=== PATIENT | female | born 1955 | race African-American/Black ===

== ENCOUNTER → 2016-03-15 | Outpatient (CLI) | payer BC ==
[2014-06-04 14:41] VITALS: BP 163/83
--- NOTE | 2016-03-15 11:27 | RAD ---
EXAM: Left lower extremity bone length study. HISTORY: Hinson & Nephew protocol. COMPARISON: None. FINDINGS: Frontal views of the left lower extremity are obtained. There is mild medial compartment joint space narrowing and marginal spurring involving the knee. There is no fracture or dislocation. No suspicious osseous lesion is seen. IMPRESSION: Mild medial compartment osteoarthritis of the left knee.
--- NOTE | 2016-03-15 13:30 | RAD ---
MR of the left knee - Hinson and Nephew protocol History: Chronic left knee pain. Preoperative planning. Technique: Sequences are obtained in accordance with the Hinson and nephew protocol. Note this is not a diagnostic exam, but rather intended solely for the purpose of medical dermatologist construction. Moderate joint effusion. Small to moderate Urban cyst with internal septations. Medial meniscal blunting or tear. 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 Electronically signed by: Josue Amezcua MD (Mar 15, 2016 13:29:19)
== END | disposition home or self-care (01) ==
LOC: RAD 09:21
PROVIDERS: ATTEND Orthopaedic Surgery Sports Medicine
DX: M17.12 Unilateral primary osteoarthritis, left knee (principal)
CPT/HCPCS: 73721; 77073

== ENCOUNTER → 2016-04-02 | Outpatient (CLI) | payer BC ==
[2014-06-04 14:41] VITALS: BP 163/83
[~2016-04-02] MED LIST: BENA1TAB5 PO; CETI10CA PO; CYCL10TA2 PO; MELO15TA6 PO; METF10002 PO; METO100T5 PO; MINO50CA PO; NAPR220C4 PO; PRAV10TA2 PO; REGADENOSON 0.4 MG/5 ML DISP.SYRIN. IV ONE
--- NOTE | 2016-04-02 14:36 | RAD ---
APPROVED REPORT Test Type: Pharmacological Stress Nurse/Tech: Kelli Johnson R.N. Test Indications: preop clearance Cardiac History: htn Medications: see ehr Medical History: see ehr Resting ECG: sr Resting Heart Rate: 67 bpm Resting Blood Pressure: 152/76mmHg Pretest Chest Pain: No chest pain Nurse/Tech Notes lungs cta, heart tones regular, good radial pulse Consent: The procedure was explained to the patient in lay terms. Informed consent was witnessed. Derrick eout was entered into [employer]. History and Stress Test performed by Kelli Johnson R.N. Pharm. Details Pharmacologic stress testing was performed using 0.4mg per 5ml of regadenoson given intravenously ove r 7-10 seconds. Stress Symptoms No chest pain or symptoms. POST EXERCISE Reason for Termination: Infusion complete Target HR: No Max HR: 109 bpm Max Blood Pressure: 152/86mmHg Chest Pain: No. Arrhythmia: No. ST Change: No. INTERPRETATION Stress EKG Conclusion: Baseline EKG showed sinus rhythm. No ischemic changes at peak stress. No arr hythmias. Imaging Protocol IMAGE PROTOCOL: Rest Tc-99m/stress Tc-99m 1 day Rest: Stress: Viability: Radiopharm.Tc99m [id number] Sestamibi Dose13.5mCi 36mCi Duration 15min. 10min. Img Date 04/02/2016 04/02/2016 Inj-Img [id number]. 60min. Rest Admin Site:IV - Left AntecubitalAdministrator:MIKE Chapin Stress Admin Site: IV - Left AntecubitalAdministrator: JONATHON Barrow, ARRT (R)(N) STRESS DATA End Diast. Vol.63.0mlAv. Heart Rate75.0bpm End Syst. Vol.12.0mlCO Index BSA0.0L/min Myocardial Pwcn421.0gEject. Vteaozne30.0% Stress Rates Pk. Fill Rate3.35EDV/secLVtime Pk. Fill 224.44msec Pk. Empty Rate4.63ESV/secLVtime Pk. Iazgw337.42msec 03/09 Pk. Fill0.69EDV/sec Stress Scores Regional WT1.00Summed WT6.00 Regional WM0.00Summed WM1.00 Study quality was good. Left Ventricular size was Normal at Rest and Stress. Lung uptake was Normal. Left Ventricular ejection fraction is 81%. The rest and stress images show normal perfusion, normal contraction and thickening. LV Perf. Quant 17 Seg. SSS0.00 17 Seg. SRS0.00 17 Seg. SDS0.00 Stress Defect Extent (% LAD)0.00Rest Defect Extent (% LAD)0.00Rev. Defect Extent (% LAD)0.00 Stress Defect Extent (% LCX) 0.00Rest Defect Extent (% LCX)0.00Rev. Defect Extent (% LCX)0.00 Stress Defect Extent (% RCA)0.00Rest Defect Extent (% RCA)0.00Rev. Defect Extent (% RCA)0.00 Stress Defect Extent (% TIM)0.00Rest Defect Extent (% TIM)0.00Rev. Defect Extent (% TIM)0.00 Conclusion 1. Regadenoson cardioisotope stress test did not show any evidence of ischemia or infarct. 2. Normal left ventricular systolic function with ejection fraction calculated at 81%. 3. Low risk for cardiac events.
== END | disposition home or self-care (01) ==
LOC: NM 09:12
PROVIDERS: ATTEND Internal Medicine Cardiovascular Disease
DX: Z01.818 Encounter for other preprocedural examination (principal); I10 Essential (primary) hypertension
CPT/HCPCS: 78452; 93017; 96374; A9500; J2785

== ENCOUNTER 2018-02-07 11:10 | Emergency (ER) | payer BC ==
[~2018-02-07] VITALS: Ht 167.6 cm; Wt 77.1 kg
[~2018-02-07 11:10] MED LIST changes: -METF10002 PO; +METF10007 PO; -MINO50CA PO; +MINO50CA3 PO; +OXYC1TAB19 PO; -REGADENOSON 0.4 MG/5 ML DISP.SYRIN. IV ONE; +WARF-78 PO
[2018-02-07] MEDS ORDERED: IV NORMAL SALINE 1000ML BAG 1,000 ML IV ONE (12:00)
--- NOTE | 2018-02-07 12:09 | PHYS DOC ---
Past Medical History Past Medical History: Diabetes-Type II, Hypertension Additional Past Medical Histor: chronic back pain Past Surgical History: Appendectomy, Hysterectomy Additional Past Surgical Histo: multiple breast cysts removed; axillary glands ; L knee; Alcohol Use: Rarely Drug Use: Marijuana Social History Narrative: "1/2 joint at HS" Adult General Chief Complaint Chief Complaint: DIZZY/LIGHT HEADED HPI HPI Patient is a pleasant 62-year-old female who presents to the emergency department for evaluation. She states she was at work, when she began to suddenly experienced some lightheadedness, and felt as if she was given faint. She tried walking to sit down, but felt lightheaded, and a coworker helped her into the chair. She did not actually fall or injure herself. She is not having any pain, including a headache, and has not had any vision changes. She denies any chest pain shortness of breath, abdominal pain, nausea vomiting or diarrhea , or any focal weakness. She has not had any hearing changes or tinnitus, or sensation of rotation. There are no alleviating or exacerbating factors to the patient's symptoms. Review of Systems Review of Systems Constitutional: Denies fever or chills [] Eyes: Denies change in visual acuity, redness, or eye pain [] HENT: Denies nasal congestion or sore throat [] Respiratory: Denies cough or shortness of breath [] Cardiovascular: The patient denies any shortness of breath, chest pain, palpitations, or orthopnea[] GI: Denies abdominal pain, nausea, vomiting, bloody stools or diarrhea [] : Denies dysuria or hematuria [] Musculoskeletal: Denies back pain or joint pain [] Integument: Denies rash or skin lesions [] Neurologic: Denies headache, focal weakness or sensory changes [] Endocrine: Denies polyuria or polydipsia [] All other systems were reviewed and found to be within normal limits, except as documented in this note. Current Medications Current Medications Current Medications Medications (Trade) Dose Ordered Sig/Kat Start Time Stop Time Status Last Admin Dose Admin Sodium Chloride 1,000 ml @ 1,000 mls/hr 1X ONCE 02/07/18 12:00 02/07/18 12:59 DC 02/07/18 12:43 1,000 MLS/HR Allergies Allergies Allergies Coded Allergies Type Severity Reaction Last Updated Verified Sulfa (Sulfonamide Antibiotics) Allergy Severe swelling 04/20/16 Yes amlodipine Allergy Severe Anaphylaxis 04/19/16 Yes adhesive tape Adverse Reaction Intermediate Rash 04/19/16 Yes Physical Exam Physical Exam PHYSICAL EXAM: CONSTITUTIONAL: Well developed, well nourished HEAD: normocephalic, atraumatic EENT: PERRL, EOMI. Conjunctivae normal color, sclerae non-icteric; moist mucous membranes. NECK: Supple, non-tender; no meningismus. LUNGS: Lungs CTA, breathing even and unlabored. Normal air movement. HEART: Regular rate and rhythm, no murmur CHEST: No deformity; non-tender ABDOMEN: The abdomen is soft, and non-tender, no masses or bruits. EXTREM: Normal ROM; no deformity, no calf tenderness. Normal pulses palpable in all extremities. There is no pedal edema. SKIN: No rash; no diaphoresis NEURO: Alert; normal speech and cognition; CN's grossly intact; strength grossly intact without focal deficit. Nbduib-dbad-rjdddx and heel squires testing are normal. Sensation is normal. Visual olivo are intact by confrontation. BACK: No CVA TTP. Current Patient Data Vital Signs Vital Signs Date Time Temp Pulse Resp B/P (MAP) Pulse Ox O2 Delivery O2 Flow Rate FiO2 02/07/18 11:20 98.0 70 16 189/85 (119) 99 Room Air 98.0 Lab Values Laboratory Tests Test 02/07/18 11:26 02/07/18 12:35 02/07/18 13:10 Glucose (Fingerstick) 71 mg/dL (70-99) White Blood Count 7.2 x10^3/uL (4.0-11.0) Red Blood Count 4.11 x10^6/uL (3.50-5.40) Hemoglobin 12.9 g/dL (12.0-15.5) Hematocrit 38.1 % (36.0-47.0) Mean Corpuscular Volume 93 fL (79-100) Mean Corpuscular Hemoglobin 31 pg (25-35) Mean Corpuscular Hemoglobin Concent 34 g/dL (31-37) Red Cell Distribution Width 15.2 % (11.5-14.5) H Platelet Count 191 x10^3/uL (140-400) Neutrophils (%) (Auto) 63 % (31-73) Lymphocytes (%) (Auto) 27 % (24-48) Monocytes (%) (Auto) 6 % (0-9) Eosinophils (%) (Auto) 3 % (0-3) Basophils (%) (Auto) 1 % (0-3) Neutrophils # (Auto) 4.6 x10^3uL (1.8-7.7) Lymphocytes # (Auto) 1.9 x10^3/uL (1.0-4.8) Monocytes # (Auto) 0.5 x10^3/uL (0.0-1.1) Eosinophils # (Auto) 0.2 x10^3/uL (0.0-0.7) Basophils # (Auto) 0.1 x10^3/uL (0.0-0.2) Sodium Level 141 mmol/L (136-145) Potassium Level 3.9 mmol/L (3.5-5.1) Chloride Level 105 mmol/L (98-107) Carbon Dioxide Level 31 mmol/L (21-32) Anion Gap 5 (6-14) L Blood Urea Nitrogen 16 mg/dL (7-20) Creatinine 0.9 mg/dL (0.6-1.0) Estimated GFR (Cockcroft-Gault) 76.8 BUN/Creatinine Ratio 18 (6-20) Glucose Level 110 mg/dL (70-99) H Calcium Level 9.7 mg/dL (8.5-10.1) Magnesium Level 2.0 mg/dL (1.8-2.4) Total Bilirubin 0.3 mg/dL (0.2-1.0) Aspartate Amino Transferase (AST) 18 U/L (15-37) Alanine Aminotransferase (ALT) 28 U/L (14-59) Alkaline Phosphatase 92 U/L (46-116) Creatine Kinase 200 U/L (26-192) H Creatine Kinase MB (Mass) 1.6 ng/mL (0.0-3.6) Creatine Kinase MB Relative Index 0.8 % (0-4) Troponin I Quantitative < 0.017 ng/mL (0.000-0.055) DH-Uvi-W-Type Natriuretic Peptide 65 pg/mL (0-124) Total Protein 7.5 g/dL (6.4-8.2) Albumin 3.5 g/dL (3.4-5.0) Albumin/Globulin Ratio 0.9 (1.0-1.7) L Thyroid Stimulating Hormone (TSH) 1.569 uIU/mL (0.358-3.74) Free Thyroxine 0.85 ng/dL (0.76-1.46) Urine Collection Type Unknown Urine Color Yellow Urine Clarity Clear Urine pH 7.5 Urine Specific Greer 1.015 Urine Protein Negative mg/dL (NEG-TRACE) Urine Glucose (UA) Negative mg/dL (NEG) Urine Ketones (Stick) Negative mg/dL (NEG) Urine Blood Negative (NEG) Urine Nitrite Negative (NEG) Urine Bilirubin Negative (NEG) Urine Urobilinogen Dipstick 0.2 mg/dL (0.2 mg/dL) Urine Leukocyte Esterase Negative (NEG) Urine RBC Occ /HPF (0-2) Urine WBC 0 /HPF (0-4) Urine Squamous Epithelial Cells Few /LPF Urine Bacteria 0 /HPF (0-FEW) Laboratory Tests 02/07/18 12:35 Laboratory Tests 02/07/18 12:35 EKG EKG [Normal sinus rhythm at a rate of 71 beats for minute, borderline left axis deviation, normal intervals. There are no acute ischemic ST/T changes.] Radiology/Procedures Radiology/Procedures [] Course & Med Decision Making Course & Med Decision Making Pertinent Labs and Imaging studies reviewed. (See chart for details) [2:10 PM: The patient's condition remains stable, she is back to baseline and is currently asymptomatic. I discussed importance of close blood pressure monitoring at home. I will double her TREMAINE inhibitor to 20 mg (she currently takes been as a pill 10 mg), and we'll add HCTZ. I discussed keeping a blood pressure log, the need for close PCP follow-up and return precautions.] Dragon Disclaimer Dragon Disclaimer This electronic medical record was generated, in whole or in part, using a voice recognition dictation system. Departure Departure Impression: Primary Impression: Dizziness Additional Impression: Hypertension Disposition: 01 HOME, SELF-CARE Condition: STABLE Referrals: UNKNOWN PCP NAME (PCP) Patient Instructions: Dizziness, Near-Syncope Scripts Benazepril/Hydrochlorothiazide (BENAZEPRIL-HCTZ 20-12.5 MG TAB) 1 Each Tablet 1 TAB PO DAILY, #30 TAB 1 Refill Prov: ABBEY KRISHNAMURTHY MD 02/07/18 Problem Qualifiers ABBEY KRISHNAMURTHY MD Feb 07, 2018 12:09
--- NOTE | 2018-02-07 12:11 | EKG ---
[facility] [address] [place] [address] Test Date: 2018-02-07 Test Time: 11:31:20 Pat Name: MALINDA RICHARDSON Department: Room: Gender: F Gas Leak Tester: RACQUEL : 1955 Requested By: ABBEY KRISHNAMURTHY Order Number: [id number] Reading MD: Measurements Intervals Enloe Rate: 70 P: 32 TX: 176 QRS: 30 QRSD: 82 T: 90 QT: 374 QTc: 406 Interpretive Statements SINUS RHYTHM LEFT ATRIAL ABNORMALITY T ABNORMALITY IN HIGH LATERAL LEADS NON SPECIFIC ST-T ABNORMALITY (ELEVATION) ABNORMAL ECG No previous ECG available for comparison
[2018-02-07 12:45] LABS: BASO # 0.1 x10^3/uL (0.0-0.2); BASO % 1 % (0-3); EOS # 0.2 x10^3/uL (0.0-0.7); EOS % 3 % (0-3); HEMATOCRIT 38.1 % (36.0-47.0); HEMOGLOBIN 12.9 g/dL (12.0-15.5); LYMPH # 1.9 x10^3/uL (1.0-4.8); LYMPH % 27 % (24-48); MEAN CORPUSCULAR HEMOGLOBIN 31 pg (25-35); MEAN CORPUSCULAR HGB CONC 34 g/dL (31-37); MEAN CORPUSCULAR VOLUME 93 fL (79-100); MONO # 0.5 x10^3/uL (0.0-1.1); MONO % 6 % (0-9); NEUT # 4.6 x10^3uL (1.8-7.7); NEUT % 63 % (31-73); PLATELET COUNT 191 x10^3/uL (140-400); RED BLOOD COUNT 4.11 x10^6/uL (3.50-5.40); RED CELL DISTRIBUTION WIDTH 15.2 % (11.5-14.5); WHITE BLOOD COUNT 7.2 x10^3/uL (4.0-11.0)
[2018-02-07 12:55] LABS: CALCIUM 9.7 mg/dL (8.5-10.1); CREATININE 0.9 mg/dL (0.6-1.0); GFR 76.8; POTASSIUM 3.9 mmol/L (3.5-5.1)
[2018-02-07 13:02] LABS: ALBUMIN 3.5 g/dL (3.4-5.0); ALBUMIN/GLOBULIN RATIO 0.9 (1.0-1.7); TOTAL BILIRUBIN 0.3 mg/dL (0.2-1.0); TOTAL PROTEIN 7.5 g/dL (6.4-8.2)
[2018-02-07 13:09] LABS: FREE T4 0.85 ng/dL (0.76-1.46); THYROID STIM HORMONE (TSH) 1.569 uIU/mL (0.358-3.74)
[2018-02-07 13:23] LABS: BILIRUBIN,URINE NEGATIVE (NEG); CLARITY,URINE CLEAR; COLOR,URINE YELLOW; NITRITE,URINE NEGATIVE (NEG); PH,URINE 7.5; PROTEIN,URINE NEGATIVE (NEG-TRACE); UROBILINOGEN,URINE 0.2 mg/dL (0.2 mg/dL)
[2018-02-07 13:25] LABS: SQUAMOUS EPITHELIAL CELL,UR FEW /LPF
[2018-02-07 13:26] LABS: BACTERIA,URINE 0 /HPF (0-FEW); RBC,URINE OCC /HPF (0-2); WBC,URINE 0 /HPF (0-4)
[2018-02-07 13:57] VITALS: BP 183/74
[2018-02-07] MEDS ORDERED: BENA1TAB6 PO (14:18)
== END 2018-02-07 14:30 | disposition home or self-care (01) ==
LOC: ER 11:10
DX: R42 Dizziness and giddiness (principal); I10 Essential (primary) hypertension; E11.9 Type 2 diabetes mellitus without complications; G89.29 Other chronic pain; Z90.89 Acquired absence of other organs; Z90.710 Acquired absence of both cervix and uterus; Z88.2 Allergy status to sulfonamides; Z88.8 Allergy status to other drugs, medicaments and biological substances
CPT/HCPCS: 36415; 80053; 81001; 82553; 82962; 83735; 83880; 84439; 84443; 84484; 85025; 93005; 96360; 99284; J7030

== ENCOUNTER → 2018-02-16 | Outpatient (CLI) | payer BC ==
[2018-02-07 13:57] VITALS: BP 183/74
[~2018-02-16] MED LIST changes: +BENA1TAB6 PO
--- NOTE | 2018-02-17 09:05 | RAD ---
DATE: 02/16/2014 EXAM: MAMMO DEVON SCREENING BILATERAL HISTORY: Routine screening. COMPARISON: None available This study was interpreted with the benefit of Computerized Aided Detection (CAD). FINDINGS: Breast Density: HETERO The breast parenchyma Is heterogeneously dense, which could reduce sensitivity of mammography. Breast parenchyma level C. The skin and nipples are within normal limits. There is a 1.5 cm oval-shaped mass with well-circumscribed margins at 4:00 position in the left breast approximately 8 cm from the nipple. No suspicious calcifications or spiculated masses. IMPRESSION: Left outer lower quadrant mass likely simple cyst. However since no comparison exam exists further evaluation with ultrasound is recommended. BI-RADS CATEGORY: 0 INCOMPLETE: NEED ADDITIONAL IMAGING EVAULATION AND/OR PRIOR MAMMOGRAMS FOR COMPARISON RECOMMENDED FOLLOW-UP: ADD ADDITIONAL IMAGING. Ultrasound of the lateral left breast at 3:00 position. PQRS compliance statement: Patient information was entered into a reminder system with a target due date for the next mammogram. Mammography is a sensitive method for finding small breast cancers, but it does not detect them all and is not a substitute for careful clinical examination. A negative mammogram does not negate a clinically suspicious finding and should not result in delay in biopsying a clinically suspicious abnormality. "Our facility is accredited by the [employer] Mammography Program."
== END | disposition home or self-care (01) ==
LOC: MAMMO 15:47
PROVIDERS: ATTEND Family Medicine
DX: Z12.31 Encounter for screening mammogram for malignant neoplasm of breast (principal)
CPT/HCPCS: 77063; 77067

== ENCOUNTER → 2018-02-23 | Outpatient (CLI) | payer BC ==
[2018-02-07 13:57] VITALS: BP 183/74
--- NOTE | 2018-02-23 13:28 | RAD ---
DATE: 02/23/2018 2:30 PM EXAM: BREAST LEFT HISTORY: further evaluation of a finding noted on her most recent screening mammographic examination. On that examination a mass was reported within the left breast COMPARISON: Prior mammogram 02/16/2018 TECHNIQUE: Grayscale and color Doppler sonographic evaluation was performed in the left breast in the region of mammographic abnormality. ULTRASOUND FINDINGS: Targeted ultrasound of the mammographic area of concern was performed. 4:00 position, 8 cm from the nipple: Parenchymal tissue of normal echotexture is present. IMPRESSION: No sonographic correlate is seen to the mammographic finding seen on prior screening examination. BI-RADS CATEGORY: 3 PROBABLY BENIGN FINDING(S)-SHORT INTERVAL FOLLOW-UP SUGGESTED RECOMMENDED FOLLOW-UP: 6M 6 MONTH FOLLOW-UP . 6 month follow-up mammographic imaging is recommended with possible ultrasound. PQRS compliance statement: Patient information was entered into a reminder system with a target due date 08/24/2017 for the next breast imaging. Mammography is a sensitive method for finding small breast cancers, but it does not detect them all and is not a substitute for careful clinical examination. A negative mammogram does not negate a clinically suspicious finding and should not result in delay in biopsying a clinically suspicious abnormality. "Our facility is accredited by the [employer] Mammography Program."
== END | disposition home or self-care (01) ==
LOC: US 12:31
PROVIDERS: ATTEND Family Medicine
DX: R92.8 Other abnormal and inconclusive findings on diagnostic imaging of breast (principal)
CPT/HCPCS: 76641

== ENCOUNTER → 2018-09-04 | Outpatient (CLI) | payer BC ==
--- NOTE | 2018-09-05 09:58 | RAD ---
DATE: 09/04/2018 EXAM: DIGITAL DIAGNOSTIC LT HISTORY: Abnormal mammogram. 6 month follow-up. COMPARISON: 02/16/2018 mammogram This study was interpreted with the benefit of Computerized Aided Detection (CAD). Breast Density: SCATTERED The breast parenchyma shows scattered fibroglandular densities. Breast parenchyma level B. FINDINGS: MLO and CC images of the left breast were obtained. Asymmetry of the outer left breast is somewhat less evident compared to prior exam. No mass, suspicious calcification clusters, or distortion identified. IMPRESSION: Benign findings BI-RADS CATEGORY: 1 NEGATIVE RECOMMENDED FOLLOW-UP: 6M 6 MONTH FOLLOW-UP PQRS compliance statement: Patient information was entered into a reminder system with a target due date in one year for the next mammogram. Mammography is a sensitive method for finding small breast cancers, but it does not detect them all and is not a substitute for careful clinical examination. A negative mammogram does not negate a clinically suspicious finding and should not result in delay in biopsying a clinically suspicious abnormality. "Our facility is accredited by the [employer] Mammography Program."
== END | disposition home or self-care (01) ==
LOC: MAMMO 16:07
PROVIDERS: ATTEND Family Medicine
DX: Z09 Encounter for follow-up examination after completed treatment for conditions other than malignant neoplasm (principal); N64.89 Other specified disorders of breast
CPT/HCPCS: 77065

== ENCOUNTER → 2020-09-02 | Outpatient (CLI) | payer BC ==
[~2020-09-02] MED LIST changes: -WARF-78 PO; +WARF5TAB2 PO
--- NOTE | 2020-09-02 15:14 | KCIC ---
EXAM: LUMBAR SPINE MINIMUM 4 VIEWS. HISTORY: Low back and right hip pain. COMPARISON: None. FINDINGS: There is grade 1 anterolisthesis at L4-5. There is a mild lumbar dextrocurvature. Vertebral body heights are maintained, and no fractures are identified. Degenerative disc disease is mild to m oderate from L3 through S1. Facet osteoarthritis is moderate to severe at L4-S1. There are atheroscle rotic calcifications of the aorta. IMPRESSION: 1. Grade 1 anterolisthesis at L4-5 from facet osteoarthritis. 2. Degenerative disc disease is mild to moderate from L4 through S1. Electronically signed by: Jimbo Jiménez MD (09/02/2020 3:11 PM) [id number]
== END ==
LOC: KCIC 10:21
PROVIDERS: ATTEND Family Medicine
DX: M51.37 Other intervertebral disc degeneration, lumbosacral region (principal); M47.817 Spondylosis without myelopathy or radiculopathy, lumbosacral region
CPT/HCPCS: 72110

== ENCOUNTER 2021-06-20 12:04 | Inpatient (IN) | payer MEDICARE, BC ==
[~2021-06-20] VITALS: Ht 162.6 cm; Wt 75.1 kg
[~2021-06-20 12:04] MED LIST changes: +BENA1TAB48 PO; -BENA1TAB5 PO; +CYCL10TA19 PO; -CYCL10TA2 PO
[2021-06-20] MEDS ORDERED: ASPIRIN CHEWABLE 81 MG TABLET. PO ONE (12:30)
[2021-06-20] MEDS ORDERED: IV NORMAL SALINE 1000ML BAG 1,000 ML IV SCH (12:30)
[2021-06-20 12:49] LABS: BASO # 0.1 x10^3/uL (0.0-0.2); BASO % 1 % (0-3); EOS # 0.2 x10^3/uL (0.0-0.7); EOS % 2 % (0-3); HEMATOCRIT 41.8 % (36.0-47.0); HEMOGLOBIN 13.9 g/dL (12.0-15.5); LYMPH # 3.6 x10^3/uL (1.0-4.8); LYMPH % 32 % (24-48); MEAN CORPUSCULAR HEMOGLOBIN 31 pg (25-35); MEAN CORPUSCULAR HGB CONC 33 g/dL (31-37); MEAN CORPUSCULAR VOLUME 93 fL (79-100); MONO # 0.7 x10^3/uL (0.0-1.1); MONO % 6 % (0-9); NEUT # 6.5 x10^3/uL (1.8-7.7); NEUT % 59 % (31-73); PLATELET COUNT 191 x10^3/uL (140-400); RED BLOOD COUNT 4.52 x10^6/uL (3.50-5.40); RED CELL DISTRIBUTION WIDTH 15.6 % (11.5-14.5)
[2021-06-20 13:00] LABS: PROTHROMBIN TIME PATIENT 12.8 SEC (11.7-14.0)
[2021-06-20 13:02] LABS: CALCIUM 10.6 mg/dL (8.5-10.1); CREATININE 1.3 mg/dL (0.6-1.0); GFR 49.7; POTASSIUM 3.4 mmol/L (3.5-5.1)
[2021-06-20 13:07] LABS: ALBUMIN 4.1 g/dL (3.4-5.0); MAGNESIUM 1.9 mg/dL (1.8-2.4); TOTAL BILIRUBIN 0.7 mg/dL (0.2-1.0); TOTAL PROTEIN 8.2 g/dL (6.4-8.2)
--- NOTE | 2021-06-20 13:10 | RAD ---
EXAMINATION: Chest radiograph. VIEWS: Single AP view of the chest COMPARISON: None INDICATION:65 years, Female, tachycardia. FINDINGS: Normal cardiomediastinal silhouette. No focal consolidation. No pleural effusion or pneumothorax. No acute osseous process. IMPRESSION: No acute cardiopulmonary process. Electronically signed by: Nakul Castellanos DO (06/20/2021 1:08 PM) [id number]
[2021-06-20] MEDS ORDERED: CONTRAST GIVEN. MC PRN (13:15)
[2021-06-20] MEDS ORDERED: IOHEXOL 350 MG/ML 100 ML VIAL. IV ONE (13:15)
[2021-06-20 13:38] LABS: AMPHETAMINE/METHAMPHETAMINE NEG (NEG); BARBITURATES NEG (NEG); BENZODIAZEPINES NEG (NEG); CANNABINOIDS POS (NEG); COCAINE NEG (NEG); METHADONE NEG (NEG); OPIATES NEG (NEG); PHENCYCLIDINE NEG (NEG)
[2021-06-20 13:41] LABS: BACTERIA,URINE FEW /HPF (0-FEW); RBC,URINE 0 /HPF (0-2); WBC,URINE OCC /HPF (0-4)
[2021-06-20] MEDS ORDERED: ACETAMINOPHEN 500 MG TABLET PO ONE (13:45)
--- NOTE | 2021-06-20 13:46 | PHYS DOC ---
Past Medical History Past Medical History: Diabetes-Type II, Hypertension Additional Past Medical Histor: chronic back pain Past Surgical History: Appendectomy, Hysterectomy, Other Additional Past Surgical Histo: multiple breast cysts removed; axillary glands; L knee; Smoking Status: Current Every Day Smoker Alcohol Use: Rarely Drug Use: Marijuana General Adult EDM: Chief Complaint: Palpitations HPI: HPI: Patient is a 65 year old female who presents with here with palpitations that made her dizzy and short of breath. She denies any pain. She states she is never felt this before. Patient states that hedges started this morning. Patient with history of high cholesterol, hypertension, diabetes, smoking, appendectomy, hysterectomy. Denies abdominal pain, nausea, vomiting, diarrhea, focal weakness, fevers, cough, back pain, urinary symptoms, vision change, syncope. Review of Systems: Review of Systems: Constitutional: Denies fever or chills. [] Eyes: Denies change in visual acuity. [] HENT: Denies nasal congestion or sore throat. [] Respiratory: Denies cough or +shortness of breath. [] Cardiovascular: Denies chest pain or edema. +Palpitations[] GI: Denies abdominal pain, nausea, vomiting, bloody stools or diarrhea. [] : Denies dysuria. [] Musculoskeletal: Denies back pain or joint pain. [] Integument: Denies rash. [] Neurologic: Denies headache, focal weakness or sensory changes. +dizziness[] Endocrine: Denies polyuria or polydipsia. [] Lymphatic: Denies swollen glands. [] Psychiatric: Denies depression or anxiety. [] Heart Score: C/O Chest Pain: No HEART Score for Chest Pain: HEART Score for Chest Pain Response (Comments) Value History Slighlty/Non-Suspicious 0 ECG Nonspecific Repolarizatio 1 Age >45 - < 65 1 Risk Factors >3 Risk Factors or Hx CAD 2 Troponin >1-<3x Normal Limit 1 Total 5 Risk Factors: Risk Factors: DM, Current or recent (<one month) smoker, HTN, HLP, family history of CAD, obesity. Risk Scores: Score 0 - 3: 2.5% MACE over next 6 weeks - Discharge Home Score 4 - 6: 20.3% MACE over next 6 weeks - Admit for Clinical Observation Score 7 - 10: 72.7% MACE over next 6 weeks - Early Invasive Strategies Current Medications: Current Medications Medications (Trade) Dose Ordered Sig/Kat Start Time Stop Time Status Last Admin Dose Admin Aspirin (Aspirin Chewable) 324 mg 1X ONCE 06/20/21 12:30 06/20/21 12:31 DC 06/20/21 12:45 324 MG Info (CONTRAST GIVEN -- Rx MONITORING) 1 each PRN DAILY PRN 06/20/21 13:15 06/22/21 13:14 Iohexol (Omnipaque 350 Mg/ml) 100 ml 1X ONCE 06/20/21 13:15 06/20/21 13:16 DC Sodium Chloride 1,000 ml @ 1,000 mls/hr Q1H 06/20/21 12:30 06/20/21 13:29 DC 06/20/21 12:45 1,000 MLS/HR Allergies: Allergies: Allergies Coded Allergies Type Severity Reaction Last Updated Verified Sulfa (Sulfonamide Antibiotics) Allergy Severe swelling 04/20/16 Yes amlodipine Allergy Severe Anaphylaxis 04/19/16 Yes adhesive tape Adverse Reaction Intermediate Rash 04/19/16 Yes Physical Exam: PE: Constitutional: Well developed, well nourished, no acute distress, non-toxic appearance. [] HENT: Normocephalic, atraumatic, bilateral external ears normal, oropharynx moist, no oral exudates, nose normal. [] Eyes: PERRLA, EOMI, conjunctiva normal, no discharge. [] Neck: Normal range of motion, no tenderness, supple, no stridor. [] Cardiovascular:Heart rate regular tachycardia rhythm, no murmur [] Lungs & Thorax: Bilateral breath sounds clear to auscultation [] Abdomen: Bowel sounds normal, soft, no tenderness, no masses, no pulsatile masses. [] Skin: Warm, dry, no erythema, no rash. [] Back: No tenderness, no CVA tenderness. [] Extremities: No tenderness, no cyanosis, no clubbing, ROM intact, no edema. [] Neurologic: Alert and oriented X 3, normal motor function, normal sensory func tion, no focal deficits noted. [] Psychologic: Affect normal, judgement normal, mood normal. [] Current Patient Data: Labs: Laboratory Tests Test 06/20/21 12:36 White Blood Count 11.0 x10^3/uL (4.0-11.0) Red Blood Count 4.52 x10^6/uL (3.50-5.40) Hemoglobin 13.9 g/dL (12.0-15.5) Hematocrit 41.8 % (36.0-47.0) Mean Corpuscular Volume 93 fL (79-100) Mean Corpuscular Hemoglobin 31 pg (25-35) Mean Corpuscular Hemoglobin Concent 33 g/dL (31-37) Red Cell Distribution Width 15.6 % (11.5-14.5) H Platelet Count 191 x10^3/uL (140-400) Neutrophils (%) (Auto) 59 % (31-73) Lymphocytes (%) (Auto) 32 % (24-48) Monocytes (%) (Auto) 6 % (0-9) Eosinophils (%) (Auto) 2 % (0-3) Basophils (%) (Auto) 1 % (0-3) Neutrophils # (Auto) 6.5 x10^3/uL (1.8-7.7) Lymphocytes # (Auto) 3.6 x10^3/uL (1.0-4.8) Monocytes # (Auto) 0.7 x10^3/uL (0.0-1.1) Eosinophils # (Auto) 0.2 x10^3/uL (0.0-0.7) Basophils # (Auto) 0.1 x10^3/uL (0.0-0.2) Prothrombin Time 12.8 SEC (11.7-14.0) Prothrombin Time INR 1.0 (0.8-1.1) Activated Partial Thromboplast Time 29 SEC (24-38) Sodium Level 140 mmol/L (136-145) Potassium Level 3.4 mmol/L (3.5-5.1) L Chloride Level 103 mmol/L (98-107) Carbon Dioxide Level 24 mmol/L (21-32) Anion Gap 13 (6-14) Blood Urea Nitrogen 21 mg/dL (7-20) H Creatinine 1.3 mg/dL (0.6-1.0) H Estimated GFR (Cockcroft-Gault) 49.7 BUN/Creatinine Ratio 16 (6-20) Glucose Level 111 mg/dL (70-99) H Calcium Level 10.6 mg/dL (8.5-10.1) H Magnesium Level 1.9 mg/dL (1.8-2.4) Total Bilirubin 0.7 mg/dL (0.2-1.0) Aspartate Amino Transferase (AST) 20 U/L (15-37) Alanine Aminotransferase (ALT) 25 U/L (14-59) Alkaline Phosphatase 77 U/L (46-116) Troponin I High Sensitivity 60 ng/L (4-50) H CF-Ify-E-Type Natriuretic Peptide 268 pg/mL (0-124) H Total Protein 8.2 g/dL (6.4-8.2) Albumin 4.1 g/dL (3.4-5.0) Albumin/Globulin Ratio 1.0 (1.0-1.7) Thyroid Stimulating Hormone (TSH) 1.179 uIU/mL (0.358-3.74) Laboratory Tests 06/20/21 12:36 Laboratory Tests 06/20/21 12:36 Vital Signs: Vital Signs Date Time Temp Pulse Resp B/P (MAP) Pulse Ox O2 Delivery O2 Flow Rate FiO2 06/20/21 12:40 100.1 108 22 154/72 (99) 100 Room Air 100.1 EKG: EK and read by Dr. Pierson is a sinus tachycardia but no STEMI [address] Pierson is a sinus rhythm but no STEMI Radiology/Procedures: Radiology/Procedures: [] Impression: [facility] [address] [facility] [place] [address] IMAGING REPORT Signed PATIENT: MALINDA RICHARDSON ACCOUNT: [id number] : 1955 LOCATION: ER AGE: 65 SEX: F EXAM STATUS: REG ER ORD. PHYSICIAN: JONATHAN COLLAZO APRN REASON: tachycardia PROCEDURE: PORTABLE CHEST 1V EXAMINATION: Chest radiograph. VIEWS: Single AP view of the chest COMPARISON: None INDICATION:65 years, Female, tachycardia. FINDINGS: Normal cardiomediastinal silhouette. No focal consolidation. No pleural effusion or pneumothorax. No acute osseous process. IMPRESSION: No acute cardiopulmonary process. Electronically signed by: Indra Castellanos DO (06/20/2021 1:08 PM) [id number] DICTATED and SIGNED BY: INDRA CASTELLANOS DO DATE: 06/20/[address] [facility] [address] [place] [address] IMAGING REPORT Signed PATIENT: MALINDA RICHARDSON ACCOUNT: [id number] : 1955 LOCATION: ER AGE: 65 SEX: F EXAM STATUS: REG ER ORD. PHYSICIAN: JONATHAN COLLAZO APRN REASON: tachycardia PROCEDURE: CT ANGIOGRAPHY CHEST EXAMINATION: CT Pulmonary Angiogram with IV contrast INDICATION: Reason: tachycardia / Spl. Instructions: OMNI 350 INJ. 90 MLS / History: COMPARISON: Same-day chest radiograph TECHNIQUE: Using helical technique, CT data from the thoracic inlet through the upper abdomen was obtained during rapid IV contrast infusion. The examination was timed to the pulmonary arterial system to generate a CT angiographic study. 3D MIPS, sagittal and coronal reformats were generated. FINDINGS: Vascular: The study is diagnostic to the level of the subsegmental pulmonary arteries. There is adequate opacification of pulmonary arteries. Pulmonary arteries: No evidence of acute or chronic pulmonary embolism. The pulmonary arteries are normal in size. Thoracic aorta: Normal in size with scattered atherosclerotic disease. Pulmonary veins: Normal drainage into the left atrium. Coronary arteries: Normal origins. Severe calcified coronary atherosclerosis. Systemic veins: Within normal limits. Heart: The heart is normal in size. No pericardial effusion. Chest: Lungs/Pleura: The pulmonary parenchyma appears within normal limits. No suspicious pulmonary nodules are visualized. No pleural effusion or focal pleural lesion. Mediastinum: No pathologic mediastinal or hilar adenopathy The visualized thyroid is unremarkable. Mild distal esophageal wall thickening may relate to reflux dysphagia process. Axilla/Soft Tissue: No supraclavicular or axillary adenopathy. Regional soft tissues are within normal limits. Upper abdomen: The visualized upper abdomen appears unremarkable. Partially visualized colonic diverticuli. Bones: No evidence of acute fractures or aggressive osseous lesions. IMPRESSION: Vascular: 1. No evidence of pulmonary embolism. Chest: 1. No acute cardiopulmonary process. 2. Mild distal esophageal wall thickening may relate to reflux dysphagia process. PRQS compliance statement - One or more of the following individualized dose reduction techniques were utilized for this study: 1. Automated exposure control 2. Adjustment of the mA and/or kV according to patient size 3. Use of iterative reconstruction technique Electronically signed by: Indra Castellanos DO (06/20/2021 1:46 PM) [id number] DICTATED and SIGNED BY: INDRA CASTELLANOS DO DATE: 06/20/21 1340 Course & Med Decision Making: Course & Med Decision Making Pertinent Labs and Imaging studies reviewed. (See chart for details) See HPI. Alert and oriented x4. Ambulatory steady gait. Speaks in full clear sentences. States she is no longer dizzy. Upon arrival her heart rate was at 136 and then it went down and was jumping from 90s up to 130s. However she is a regular tachycardia. Her temperature is slightly elevated at 100.1. She continues to deny any kind of chest pain or pressure. Her troponin is at 60. When looking back to the blood work from 2018 her kidney function was normal. At this time her kidney function is elevated. Patient did get an aspirin in the ED. Troponin elevated. Patient's heart rate has gone down into the 80s by itself. Patient elevated to the hospitalist for elevated troponin and tachycardia. I have spoken to Dr. Casarez about this patient. [] Marcela Disclaimer: Marcela Disclaimer: This electronic medical record was generated, in whole or in part, using a voice recognition dictation system. Departure Departure Impression: Primary Impression: Tachycardia Additional Impression: Elevated troponin Disposition: ADMITTED INPATIENT Admitting Physician: HAMMAD Condition: STABLE Referrals: Damian SANDHU MD (PCP) JONATHAN COLLAZO APRN Jun 20, 2021 13:46
--- NOTE | 2021-06-20 13:48 | RAD ---
EXAMINATION: CT Pulmonary Angiogram with IV contrast INDICATION: Reason: tachycardia / Spl. Instructions: OMNI 350 INJ. 90 MLS / History: COMPARISON: Same-day chest radiograph TECHNIQUE: Using helical technique, CT data from the thoracic inlet through the upper abdomen was obt ained during rapid IV contrast infusion. The examination was timed to the pulmonary arterial system t o generate a CT angiographic study. 3D MIPS, sagittal and coronal reformats were generated. FINDINGS: Vascular: The study is diagnostic to the level of the subsegmental pulmonary arteries. There is adequate opacif ication of pulmonary arteries. Pulmonary arteries: No evidence of acute or chronic pulmonary embolism. The pulmonary arteries are no rmal in size. Thoracic aorta: Normal in size with scattered atherosclerotic disease. Pulmonary veins: Normal drainage into the left atrium. Coronary arteries: Normal origins. Severe calcified coronary atherosclerosis. Systemic veins: Within normal limits. Heart: The heart is normal in size. No pericardial effusion. Chest: Lungs/Pleura: The pulmonary parenchyma appears within normal limits. No suspicious pulmonary nodules are visualized. No pleural effusion or focal pleural lesion. Mediastinum: No pathologic mediastinal or hilar adenopathy The visualized thyroid is unremarkable. Mild distal esophageal wall thickening may relate to reflux dysphagia process. Axilla/Soft Tissue: No supraclavicular or axillary adenopathy. Regional soft tissues are within joel l limits. Upper abdomen: The visualized upper abdomen appears unremarkable. Partially visualized colonic divert iculi. Bones: No evidence of acute fractures or aggressive osseous lesions. IMPRESSION: Vascular: 1. No evidence of pulmonary embolism. Chest: 1. No acute cardiopulmonary process. 2. Mild distal esophageal wall thickening may relate to reflux dysphagia process. PRQS compliance statement - One or more of the following individualized dose reduction techniques wer e utilized for this study: 1. Automated exposure control 2. Adjustment of the mA and/or kV according to patient size 3. Use of iterative reconstruction technique Electronically signed by: Nakul Castellanos DO (06/20/2021 1:46 PM) [id number]
[2021-06-20 14:47] LABS: INFLUENZA A PATIENT NEGATIVE (NEGATIVE); INFLUENZA B PATIENT NEGATIVE (NEGATIVE)
--- NOTE | 2021-06-20 15:28 | PDOC1 ---
History and Physical Date of Service: DOS: DATE: 06/20/21 TIME: 15:20 Chief Complaint: Chief Complain: Palpitations History of Present Illness: HPI: 65-year-old female with past medical history of diabetes, hypertension, dyslipidemia and recurrent hidradenitis suppurativa and multiple surgeries for that. Patient comes in for palpitations on her left side of her chest and some dizziness and shortness of breath that started last night. She also had some hot flashes. She is never had feelings like this before so thus far she decided to come in to be evaluated. Denies abdominal pain, nausea, vomiting, diarrhea, focal weakness, fevers, cough, back pain, urinary symptoms, vision change, syncope. Past Medical/Surgical History: PMH/PSH: Past Medical History: Diabetes-Type II, Hypertension, chronic back pain Past Surgical History: Appendectomy, Hysterectomy, multiple breast cysts removed; axillary glands; L knee; Allergies: Allergies: Coded Allergies: Sulfa (Sulfonamide Antibiotics) (Verified Allergy, Severe, swelling, 04/20/16) amlodipine (Verified Allergy, Severe, Anaphylaxis, 04/19/16) adhesive tape (Verified Adverse Reaction, Intermediate, Rash, 04/19/16) Family History: Family History: Reviewed with no relative findings in the chart Social History: Social History: Smoking Status: Current Every Day Smoker Alcohol Use: Rarely Drug Use: Marijuana Current Medications: Current Medications Current Medications Aspirin (Aspirin Chewable) 324 mg 1X ONCE PO Last administered on 06/20/21at 12:45; Start 06/20/21 at 12:30; Stop 06/20/21 at 12:31; Status DC Sodium Chloride 1,000 ml @ 1,000 mls/hr Q1H IV Last administered on 06/20/21at 12:45; Start 06/20/21 at 12:30; Stop 06/20/21 at 13:29; Status DC Iohexol (Omnipaque 350 Mg/ml) 100 ml 1X ONCE IV Last administered on 06/20/21at 13:36; Start 06/20/21 at 13:15; Stop 06/20/21 at 13:16; Status DC Info (CONTRAST GIVEN -- Rx MONITORING) 1 each PRN DAILY PRN MC SEE COMMENTS; Start 06/20/21 at 13:15; Stop 06/22/21 at 13:14 Acetaminophen (Tylenol) 1,000 mg 1X ONCE PO Last administered on 06/20/21at 14:24; Start 06/20/21 at 13:45; Stop 06/20/21 at 13:46; Status DC Active Scripts Active Benazepril-Hctz 20-12.5 Mg Tab (Benazepril/Hydrochlorothiazide) 1 Each Tablet 1 Tab PO DAILY Reported Percocet 7.5-325 Mg Tablet (Oxycodone/Acetaminophen) 1 Each Tablet 1 Tab PO PRN Q3HRS PRN LAST DOSE GIVEN: DATE:04-22-16 TIME:12:30 p.m. NEXT DOSE DUE: DATE:04-22-16 TIME: 3:30 p.m. if needed for pain as directed Coumadin (Warfarin Sodium) 5 Mg Tablet 1 Tab PO DAILY LAST DOSE GIVEN: DATE:04-22-16 TIME:12:30 p.m. NEXT DOSE DUE: DATE:02-20-17 TIME:5:00 p.m. Zyrtec (Cetirizine Hcl) 10 Mg Capsule 10 Mg PO DAILY LAST DOSE GIVEN: DATE:04-22-16 TIME:8:30 a.m. NEXT DOSE DUE: DATE:04-23-16 TIME:8:30 a.m. Cyclobenzaprine Hcl 10 Mg Tablet 10 Mg PO TID LAST DOSE GIVEN: :04-22-16 TIME:2:30 p.m. NEXT DOSE DUE: DATE:04-22-16 TIME:9:00 p.m. Pravastatin Sodium 10 Mg Tablet 1 Tab PO QHS LAST DOSE GIVEN: DATE:04-22-16 TIME:9:00 p.m. NEXT DOSE DUE: DATE:04-23-16 TIME:9:00 p.m. Metformin Hcl 1,000 Mg Tablet 1,000 Mg PO DAILYWBKFT LAST DOSE GIVEN: DATE:04-22-16 TIME:8:30 a.m. NEXT DOSE DUE: DATE:04-22-16 TIME:5:00 p.m. Toprol Xl (Metoprolol Succinate) 100 Mg Tab.er.24h 100 Mg PO HS LAST DOSE GIVEN: DATE:04-21-16 TIME:9:00 p.m. NEXT DOSE DUE: DATE:04-22-16 TIME:9:00 p.m. Benazepril-Hctz 10-12.5 Mg Tab (Benazepril/Hydrochlorothiazide) 1 Each Tablet 1 Each PO DAILY LAST DOSE GIVEN: DATE: 04-22-16 TIME:8:30 a.m. NEXT DOSE DUE: DATE: 04-23-16 TIME: 8:30 a.m. Minocycline Hcl 50 Mg Capsule 50 Mg PO DAILY Not given while in hosp. May resume at home as directed. ROS: Review of Systems Review of System REVIEW OF SYSTEMS: GENERAL: Denies weakness SKIN: No bruising, hair changes or rashes. EYES: No blurred, double or loss of vision. NOSE AND THROAT: No history of nosebleeds, hoarseness or sore throat. HEART: No history of palpitations, chest pain or shortness of breath on exertion. LUNGS: Denies cough, hemoptysis, wheezing or shortness of breath. GASTROINTESTINAL: Denies changes in appetite, nausea, vomiting, diarrhea or constipation. GENITOURINARY: No history of frequency, urgency, hesitancy or nocturia. NEUROLOGIC: Denies history of numbness, tingling, or tremor. PSYCHIATRIC: No history of panic, anxiety or depression. ENDOCRINE: No history of heat or cold intolerance, polyuria or polydipsia. EXTREMITIES: Denies joint pain, pain on walking or stiffness. Physical Exam: Vital Signs: Vital Signs Date Time Temp Pulse Resp B/P (MAP) Pulse Ox O2 Delivery O2 Flow Rate FiO2 06/20/21 12:40 100.1 108 22 154/72 (99) 100 Room Air 100.1 Physcial Exam: GEN: No apparent distress. Alert and oriented HEENT: Normal cephalic, atraumatic, external auditory canals are patent EYES: Extraocular muscles are intact, pupil are equally round and reactive to light and accommodation MUSCULOSKELETAL: Well developed , well nourished, good range of motion ENDOCRINE: No thyromegaly was palpated LYMPHATICS: No cervical chain or axillary nodes were noted HEMATOPOIETIC: No bruising NECK: Supple, no JVD, no thyromegaly was noted LUNGS: Clear to auscultation in all lung olivo without rhonchi or wheezing HEART: RRR, S!, S2 present. Peripheral pulses intact, no obvious murmurs noted ABDOMEN: Soft, nontender. Positive bowel sounds, no organomegaly, normal bowel sounds EXTREMITIES: Without clubbing, cyanosis, or edema. Pedal pulses intact. Negative Homans sign NEUROLOGIC: Normal speech and tone. A&O x 3, moves all extremities, no obvious focal deficits PSYCHIATRIC: Normal affect, normal mood. Stable SKIN: No ulcerations or rashes, good skin turgor, no jaundice VASCULAR: Good capillary refill, neurovascular bundle appears to be intact Labs: Labs: Laboratory Tests Test 06/20/21 12:36 06/20/21 13:21 06/20/21 14:25 White Blood Count 11.0 x10^3/uL (4.0-11.0) Red Blood Count 4.52 x10^6/uL (3.50-5.40) Hemoglobin 13.9 g/dL (12.0-15.5) Hematocrit 41.8 % (36.0-47.0) Mean Corpuscular Volume 93 fL (79-100) Mean Corpuscular Hemoglobin 31 pg (25-35) Mean Corpuscular Hemoglobin Concent 33 g/dL (31-37) Red Cell Distribution Width 15.6 % (11.5-14.5) Platelet Count 191 x10^3/uL (140-400) Neutrophils (%) (Auto) 59 % (31-73) Lymphocytes (%) (Auto) 32 % (24-48) Monocytes (%) (Auto) 6 % (0-9) Eosinophils (%) (Auto) 2 % (0-3) Basophils (%) (Auto) 1 % (0-3) Neutrophils # (Auto) 6.5 x10^3/uL (1.8-7.7) Lymphocytes # (Auto) 3.6 x10^3/uL (1.0-4.8) Monocytes # (Auto) 0.7 x10^3/uL (0.0-1.1) Eosinophils # (Auto) 0.2 x10^3/uL (0.0-0.7) Basophils # (Auto) 0.1 x10^3/uL (0.0-0.2) Prothrombin Time 12.8 SEC (11.7-14.0) Prothromb Time International Ratio 1.0 (0.8-1.1) Activated Partial Thromboplast Time 29 SEC (24-38) Sodium Level 140 mmol/L (136-145) Potassium Level 3.4 mmol/L (3.5-5.1) Chloride Level 103 mmol/L (98-107) Carbon Dioxide Level 24 mmol/L (21-32) Anion Gap 13 (6-14) Blood Urea Nitrogen 21 mg/dL (7-20) Creatinine 1.3 mg/dL (0.6-1.0) Estimated GFR (Cockcroft-Gault) 49.7 BUN/Creatinine Ratio 16 (6-20) Glucose Level 111 mg/dL (70-99) Calcium Level 10.6 mg/dL (8.5-10.1) Magnesium Level 1.9 mg/dL (1.8-2.4) Total Bilirubin 0.7 mg/dL (0.2-1.0) Aspartate Amino Transf (AST/SGOT) 20 U/L (15-37) Alanine Aminotransferase (ALT/SGPT) 25 U/L (14-59) Alkaline Phosphatase 77 U/L (46-116) Troponin I High Sensitivity 60 ng/L (4-50) CV-Oks-I-Type Natriuretic Peptide 268 pg/mL (0-124) Total Protein 8.2 g/dL (6.4-8.2) Albumin 4.1 g/dL (3.4-5.0) Albumin/Globulin Ratio 1.0 (1.0-1.7) Thyroid Stimulating Hormone (TSH) 1.179 uIU/mL (0.358-3.74) Urine Collection Type Unknown Urine Color (Auto) Light yellow Urine Turbidity Clear Urine pH (Auto) 6.5 (<5.0-8.0) Urine Specific [place] 1.008 (1.000-1.030) Urine Protein (Auto) Negative mg/dL (Negative) Urine Glucose (Auto)(UA) Negative mg/dL (Negative) Urine Ketones (Auto) Negative mg/dL (Negative) Urine Blood (Auto) Trace (Negative) Urine Nitrite Negative (Negative) Urine Bilirubin (Auto) Negative (Negative) Urine Urobilinogen (Auto) Normal mg/dL (Normal) Urine Leukocyte Esterase (Auto) Negative (Negative) Urine RBC 0 /HPF (0-2) Urine WBC Occ /HPF (0-4) Urine Squamous Epithelial Cells Mod /LPF Urine Bacteria Few /HPF (0-FEW) Urine Opiates Screen Neg (NEG) Urine Methadone Screen Neg (NEG) Urine Barbiturates Neg (NEG) Urine Phencyclidine Screen Neg (NEG) Urine Amphetamine/Methamphetamine Neg (NEG) Urine Benzodiazepines Screen Neg (NEG) Urine Cocaine Screen Neg (NEG) Urine Cannabinoids Screen Pos (NEG) Urine Ethyl Alcohol Neg (NEG) Influenza Type A Antigen Negative (NEGATIVE) Influenza Type B Antigen Negative (NEGATIVE) SARS-CoV-2 Antigen (Rapid) Negative (NEGATIVE) Laboratory Tests Test 06/20/21 12:36 06/20/21 13:21 06/20/21 14:25 White Blood Count 11.0 x10^3/uL (4.0-11.0) Red Blood Count 4.52 x10^6/uL (3.50-5.40) Hemoglobin 13.9 g/dL (12.0-15.5) Hematocrit 41.8 % (36.0-47.0) Mean Corpuscular Volume 93 fL (79-100) Mean Corpuscular Hemoglobin 31 pg (25-35) Mean Corpuscular Hemoglobin Concent 33 g/dL (31-37) Red Cell Distribution Width 15.6 % (11.5-14.5) Platelet Count 191 x10^3/uL (140-400) Neutrophils (%) (Auto) 59 % (31-73) Lymphocytes (%) (Auto) 32 % (24-48) Monocytes (%) (Auto) 6 % (0-9) Eosinophils (%) (Auto) 2 % (0-3) Basophils (%) (Auto) 1 % (0-3) Neutrophils # (Auto) 6.5 x10^3/uL (1.8-7.7) Lymphocytes # (Auto) 3.6 x10^3/uL (1.0-4.8) Monocytes # (Auto) 0.7 x10^3/uL (0.0-1.1) Eosinophils # (Auto) 0.2 x10^3/uL (0.0-0.7) Basophils # (Auto) 0.1 x10^3/uL (0.0-0.2) Prothrombin Time 12.8 SEC (11.7-14.0) Prothromb Time International Ratio 1.0 (0.8-1.1) Activated Partial Thromboplast Time 29 SEC (24-38) Sodium Level 140 mmol/L (136-145) Potassium Level 3.4 mmol/L (3.5-5.1) Chloride Level 103 mmol/L (98-107) Carbon Dioxide Level 24 mmol/L (21-32) Anion Gap 13 (6-14) Blood Urea Nitrogen 21 mg/dL (7-20) Creatinine 1.3 mg/dL (0.6-1.0) Estimated GFR (Cockcroft-Gault) 49.7 BUN/Creatinine Ratio 16 (6-20) Glucose Level 111 mg/dL (70-99) Calcium Level 10.6 mg/dL (8.5-10.1) Magnesium Level 1.9 mg/dL (1.8-2.4) Total Bilirubin 0.7 mg/dL (0.2-1.0) Aspartate Amino Transf (AST/SGOT) 20 U/L (15-37) Alanine Aminotransferase (ALT/SGPT) 25 U/L (14-59) Alkaline Phosphatase 77 U/L (46-116) Troponin I High Sensitivity 60 ng/L (4-50) XF-Ytu-A-Type Natriuretic Peptide 268 pg/mL (0-124) Total Protein 8.2 g/dL (6.4-8.2) Albumin 4.1 g/dL (3.4-5.0) Albumin/Globulin Ratio 1.0 (1.0-1.7) Thyroid Stimulating Hormone (TSH) 1.179 uIU/mL (0.358-3.74) Urine Collection Type Unknown Urine Color (Auto) Light yellow Urine Turbidity Clear Urine pH (Auto) 6.5 (<5.0-8.0) Urine Specific [place] 1.008 (1.000-1.030) Urine Protein (Auto) Negative mg/dL (Negative) Urine Glucose (Auto)(UA) Negative mg/dL (Negative) Urine Ketones (Auto) Negative mg/dL (Negative) Urine Blood (Auto) Trace (Negative) Urine Nitrite Negative (Negative) Urine Bilirubin (Auto) Negative (Negative) Urine Urobilinogen (Auto) Normal mg/dL (Normal) Urine Leukocyte Esterase (Auto) Negative (Negative) Urine RBC 0 /HPF (0-2) Urine WBC Occ /HPF (0-4) Urine Squamous Epithelial Cells Mod /LPF Urine Bacteria Few /HPF (0-FEW) Urine Opiates Screen Neg (NEG) Urine Methadone Screen Neg (NEG) Urine Barbiturates Neg (NEG) Urine Phencyclidine Screen Neg (NEG) Urine Amphetamine/Methamphetamine Neg (NEG) Urine Benzodiazepines Screen Neg (NEG) Urine Cocaine Screen Neg (NEG) Urine Cannabinoids Screen Pos (NEG) Urine Ethyl Alcohol Neg (NEG) Influenza Type A Antigen Negative (NEGATIVE) Influenza Type B Antigen Negative (NEGATIVE) SARS-CoV-2 Antigen (Rapid) Negative (NEGATIVE) Images: Images PROCEDURE: PORTABLE CHEST 1V EXAMINATION: Chest radiograph. VIEWS: Single AP view of the chest COMPARISON: None INDICATION:65 years, Female, tachycardia. FINDINGS: Normal cardiomediastinal silhouette. No focal consolidation. No pleural effusion or pneumothorax. No acute osseous process. IMPRESSION: No acute cardiopulmonary process. PROCEDURE: CT ANGIOGRAPHY CHEST EXAMINATION: CT Pulmonary Angiogram with IV contrast INDICATION: Reason: tachycardia / Spl. Instructions: OMNI 350 INJ. 90 MLS / History: COMPARISON: Same-day chest radiograph TECHNIQUE: Using helical technique, CT data from the thoracic inlet through the upper abdomen was obtained during rapid IV contrast infusion. The examination was timed to the pulmonary arterial system to generate a CT angiographic study. 3D MIPS, sagittal and coronal reformats were generated. FINDINGS: Vascular: The study is diagnostic to the level of the subsegmental pulmonary arteries. There is adequate opacification of pulmonary arteries. Pulmonary arteries: No evidence of acute or chronic pulmonary embolism. The pulmonary arteries are normal in size. Thoracic aorta: Normal in size with scattered atherosclerotic disease. Pulmonary veins: Normal drainage into the left atrium. Coronary arteries: Normal origins. Severe calcified coronary atherosclerosis. Systemic veins: Within normal limits. Heart: The heart is normal in size. No pericardial effusion. Chest: Lungs/Pleura: The pulmonary parenchyma appears within normal limits. No susp icious pulmonary nodules are visualized. No pleural effusion or focal pleural lesion. Mediastinum: No pathologic mediastinal or hilar adenopathy The visualized thyroid is unremarkable. Mild distal esophageal wall thickening may relate to reflux dysphagia process. Axilla/Soft Tissue: No supraclavicular or axillary adenopathy. Regional soft tissues are within normal limits. Upper abdomen: The visualized upper abdomen appears unremarkable. Partially visualized colonic diverticuli. Bones: No evidence of acute fractures or aggressive osseous lesions. IMPRESSION: Vascular: 1. No evidence of pulmonary embolism. Chest: 1. No acute cardiopulmonary process. 2. Mild distal esophageal wall thickening may relate to reflux dysphagia process. Assessment/Plan Assessment/Plan Atypical chest discomfort concerning for unstable angina/NSTEMI, multiple risk factors Hypertensive urgency History of diabetes mellitus type 2 ROSALIE due to vasomotor nephropathy Mild hypokalemia Elevated troponin suggestive of type II demand ischemia Admit to hospitalist service for further management Cardiology consult Resume home antihypertensive medications, will hold HCTZ and lisinopril due to ROSALIE Antihypertensive medications to maintain systolic blood pressure between 1 40-1 80 Pending lipid panel IV morphine as needed Maintain O2 sats between 88 to 95% Trend troponins Repeat EKG in the a.m. Continue telemetry monitoring Monitor for electrolyte abnormalities Avoid NSAIDs Lovenox for DVT prophylaxis Protonix GI prophylaxis ADA diet CODE STATUS full Discussed with RN and SW Disposition inpatient management as above DPOA: Justifications for Admission Other Justification DAYA MEI MD Jun 20, 2021 15:28
[2021-06-20] MEDS ORDERED: ZOLPIDEM 5 MG TABLET. PO PRN (15:30)
[2021-06-20] MEDS ORDERED: diphenhydrAMINE HCL 25 MG CAPSULE PO PRN ×2 (15:30)
[2021-06-20] MEDS ORDERED: ONDANSETRON PF 4 MG/2 ML VIAL. IVP PRN (15:30)
[2021-06-20] MEDS ORDERED: ACETAMINOPHEN 325 MG TABLET. PO PRN (15:30)
[2021-06-20] MEDS ORDERED: MORPHINE SULFATE 2 MG/ML INJ. IV PRN (15:30)
[2021-06-20] MEDS ORDERED: LORazepam 0.5 MG TABLET PO PRN (15:30)
[2021-06-20] MEDS ORDERED: oxyCODONE/APAP 5/325 1 TAB TABLET PO PRN ×2 (15:30)
[2021-06-20] MEDS ORDERED: PROCHLORPERAZINE 10 MG/2 ML VIAL. IV PRN (15:30)
[2021-06-20] MEDS ORDERED: SENNOSIDES 8.6 MG TABLET PO PRN (15:30)
[2021-06-20] MEDS ORDERED: MORPHINE SULFATE 2 MG/ML INJ. IVP PRN (15:30)
[2021-06-20] MEDS: IV NORMAL SALINE 1000ML BAG 1,000 ML IV SCH (15:30)
[2021-06-20] MEDS ORDERED: diphenhydrAMINE 50 MG/ML VIAL IVP PRN (15:30)
[2021-06-20] MEDS ORDERED: DOCUSATE SODIUM 100 MG CAPSULE. PO PRN (15:30)
[2021-06-20] MEDS ORDERED: DEXTROSE 50% 25 GM / 50ML DISP.SYRIN. IV PRN (15:30)
[2021-06-20 16:00] VITALS: BP 112/74
[2021-06-20] MEDS: INSULIN LISPRO 300 UNITS/3 ML VIAL. SQ SCH (17:00)
[2021-06-20] MEDS ORDERED: POTASSIUM CHLORIDE 20 MEQ TABLET.ER. PO ONE (18:00)
[2021-06-20 19:25] VITALS: BP 142/67
[2021-06-20] MEDS ORDERED: hydrALAZINE 20 MG/ML VIAL. IVP PRN (19:30)
[2021-06-20] MEDS ORDERED: LABETALOL 20 MG/4 ML DISP.SYRIN. IVP PRN (19:30)
--- NOTE | 2021-06-20 20:00 | NUR ---
patient on unit, in room reported no chest pains or sob. pt oriented to room and call light. pt voiced no concerns or complaints.
[2021-06-20] MEDS: CYCLOBENZAPRINE 10 MG TABLET. PO SCH (22:01)
[2021-06-20] MEDS: ENOXAPARIN 40 MG/0.4 ML SYRINGE. SQ SCH (22:02)
[2021-06-20] MEDS: METOPROLOL SUCC 24HR ER 100 MG TAB.ER.24H. PO SCH (22:02)
[2021-06-20 23:55] VITALS: BP 148/73
[2021-06-21 03:33] LABS: CREATININE 1.1 mg/dL (0.6-1.0); GFR 60.3; MAGNESIUM 1.8 mg/dL (1.8-2.4); PHOSPHORUS 2.9 mg/dL (2.6-4.7); POTASSIUM 4.5 mmol/L (3.5-5.1)
[2021-06-21] MEDS: IV NORMAL SALINE 1000ML BAG 1,000 ML IV SCH ×2 (03:33→11:30)
[2021-06-21 03:34] LABS: BASO % 1 % (0-3); EOS # 0.2 x10^3/uL (0.0-0.7); EOS % 2 % (0-3); HEMATOCRIT 35.6 % (36.0-47.0); HEMOGLOBIN 11.9 g/dL (12.0-15.5); LYMPH # 4.1 x10^3/uL (1.0-4.8); LYMPH % 43 % (24-48); MEAN CORPUSCULAR HEMOGLOBIN 31 pg (25-35); MEAN CORPUSCULAR HGB CONC 34 g/dL (31-37); MEAN CORPUSCULAR VOLUME 94 fL (79-100); MONO # 0.6 x10^3/uL (0.0-1.1); MONO % 6 % (0-9); NEUT # 4.5 x10^3/uL (1.8-7.7); NEUT % 48 % (31-73); PLATELET COUNT 168 x10^3/uL (140-400); WHITE BLOOD COUNT 9.4 x10^3/uL (4.0-11.0)
[2021-06-21 03:45] VITALS: BP 142/62
[2021-06-21 05:33] LABS: CHOLESTEROL/HDL RATIO 2.6
[2021-06-21 06:47] VITALS: BP 166/65
[2021-06-21] MEDS: INSULIN LISPRO 300 UNITS/3 ML VIAL. SQ SCH ×3 (08:00→17:00)
[2021-06-21] MEDS: ASPIRIN ENTERIC COATED 81 MG TABLET.DR. PO SCH (08:56)
[2021-06-21] MEDS: CYCLOBENZAPRINE 10 MG TABLET. PO SCH ×3 (08:56→22:06)
[2021-06-21] MEDS: MINOCYCLINE HCL 50 MG PO SCH (08:57)
[2021-06-21 11:00] VITALS: BP 134/76
--- NOTE | 2021-06-21 12:27 | PDOC ---
[employer] PROGRESS NOTE Date of Service DOS: DATE: 06/21/21 TIME: 12:24 Chief Complaint Chief Complaint Assessment/Plan Atypical chest discomfort concerning for unstable angina/NSTEMI, multiple risk factors Hypertensive urgency History of diabetes mellitus type 2 ROSALIE due to vasomotor nephropathy Mild hypokalemia Elevated troponin suggestive of type II demand ischemia Admit to hospitalist service for further management Cardiology consult Resume home antihypertensive medications, will hold HCTZ and lisinopril due to ROSALIE Antihypertensive medications to maintain systolic blood pressure between 1 40-1 80 Pending lipid panel IV morphine as needed Maintain O2 sats between 88 to 95% Trend troponins Repeat EKG in the a.m. Continue telemetry monitoring Monitor for electrolyte abnormalities Avoid NSAIDs Lovenox for DVT prophylaxis Protonix GI prophylaxis ADA diet CODE STATUS full Discussed with RN and SW Disposition inpatient management as above DPOA: History of Present Illness History of Present Illness 65-year-old female with past medical history of diabetes, hypertension, dyslipidemia and recurrent hidradenitis suppurativa and multiple surgeries for that. Patient comes in for palpitations on her left side of her chest and some dizziness and shortness of breath that started last night. She also had some hot flashes. She is never had feelings like this before so thus far she decided to come in to be evaluated. Denies abdominal pain, nausea, vomiting, diarrhea, focal weakness, fevers, cough, back pain, urinary symptoms, vision change, syncope. 06/21/2021 No acute events overnight. Patient seen examined bedside. Patient clinically feels better. Creatinine improved to 1.1. Troponins were stable throughout the night. Pending cardiology evaluation. Patient's chart, labs, images were reviewed and discussed with RN Vitals/I&O Vitals/I&O: Vital Signs Date Time Temp Pulse Resp B/P (MAP) Pulse Ox O2 Delivery O2 Flow Rate FiO2 06/21/21 11:00 56 20 134/76 (95) 100 Room Air 06/21/21 06:47 98.0 98.0 I & O 06/20/21 06/20/21 06/21/21 15:00 23:00 07:00 Intake Total 1000 ml 200 ml Output Total 500 ml Balance 1000 ml -300 ml Physical Exam General: Alert, Oriented X3, Cooperative Heart: Regular rate Lungs: Clear Abdomen: Normal bowel sounds Extremities: No clubbing Skin: No rashes Labs Labs: Laboratory Tests Test 06/20/21 12:36 06/20/21 13:21 06/20/21 14:25 06/20/21 15:18 White Blood Count 11.0 x10^3/uL (4.0-11.0) Red Blood Count 4.52 x10^6/uL (3.50-5.40) Hemoglobin 13.9 g/dL (12.0-15.5) Hematocrit 41.8 % (36.0-47.0) Mean Corpuscular Volume 93 fL (79-100) Mean Corpuscular Hemoglobin 31 pg (25-35) Mean Corpuscular Hemoglobin Concent 33 g/dL (31-37) Red Cell Distribution Width 15.6 % (11.5-14.5) Platelet Count 191 x10^3/uL (140-400) Neutrophils (%) (Auto) 59 % (31-73) Lymphocytes (%) (Auto) 32 % (24-48) Monocytes (%) (Auto) 6 % (0-9) Eosinophils (%) (Auto) 2 % (0-3) Basophils (%) (Auto) 1 % (0-3) Neutrophils # (Auto) 6.5 x10^3/uL (1.8-7.7) Lymphocytes # (Auto) 3.6 x10^3/uL (1.0-4.8) Monocytes # (Auto) 0.7 x10^3/uL (0.0-1.1) Eosinophils # (Auto) 0.2 x10^3/uL (0.0-0.7) Basophils # (Auto) 0.1 x10^3/uL (0.0-0.2) Prothrombin Time 12.8 SEC (11.7-14.0) Prothromb Time International Ratio 1.0 (0.8-1.1) Activated Partial Thromboplast Time 29 SEC (24-38) Sodium Level 140 mmol/L (136-145) Potassium Level 3.4 mmol/L (3.5-5.1) Chloride Level 103 mmol/L (98-107) Carbon Dioxide Level 24 mmol/L (21-32) Anion Gap 13 (6-14) Blood Urea Nitrogen 21 mg/dL (7-20) Creatinine 1.3 mg/dL (0.6-1.0) Estimated GFR (Cockcroft-Gault) 49.7 BUN/Creatinine Ratio 16 (6-20) Glucose Level 111 mg/dL (70-99) Calcium Level 10.6 mg/dL (8.5-10.1) Magnesium Level 1.9 mg/dL (1.8-2.4) Total Bilirubin 0.7 mg/dL (0.2-1.0) Aspartate Amino Transf (AST/SGOT) 20 U/L (15-37) Alanine Aminotransferase (ALT/SGPT) 25 U/L (14-59) Alkaline Phosphatase 77 U/L (46-116) Troponin I High Sensitivity 60 ng/L (4-50) 63 ng/L (4-50) [id number]-Mdq-U-Type Natriuretic Peptide 268 pg/mL (0-124) Total Protein 8.2 g/dL (6.4-8.2) Albumin 4.1 g/dL (3.4-5.0) Albumin/Globulin Ratio 1.0 (1.0-1.7) Thyroid Stimulating Hormone (TSH) 1.179 uIU/mL (0.358-3.74) Urine Collection Type Unknown Urine Color (Auto) Light yellow Urine Turbidity Clear Urine pH (Auto) 6.5 (<5.0-8.0) Urine Specific [place] 1.008 (1.000-1.030) Urine Protein (Auto) Negative mg/dL (Negative) Urine Glucose (Auto)(UA) Negative mg/dL (Negative) Urine Ketones (Auto) Negative mg/dL (Negative) Urine Blood (Auto) Trace (Negative) Urine Nitrite Negative (Negative) Urine Bilirubin (Auto) Negative (Negative) Urine Urobilinogen (Auto) Normal mg/dL (Normal) Urine Leukocyte Esterase (Auto) Negative (Negative) Urine RBC 0 /HPF (0-2) Urine WBC Occ /HPF (0-4) Urine Squamous Epithelial Cells Mod /LPF Urine Bacteria Few /HPF (0-FEW) Urine Opiates Screen Neg (NEG) Urine Methadone Screen Neg (NEG) Urine Barbiturates Neg (NEG) Urine Phencyclidine Screen Neg (NEG) Urine Amphetamine/Methamphetamine Neg (NEG) Urine Benzodiazepines Screen Neg (NEG) Urine Cocaine Screen Neg (NEG) Urine Cannabinoids Screen Pos (NEG) Urine Ethyl Alcohol Neg (NEG) Influenza Type A Antigen Negative (NEGATIVE) Influenza Type B Antigen Negative (NEGATIVE) SARS-CoV-2 Antigen (Rapid) Negative (NEGATIVE) Test 06/20/21 17:00 06/20/21 21:18 06/21/21 02:00 06/21/21 07:49 Glucose (Fingerstick) 109 mg/dL (70-99) 102 mg/dL (70-99) 82 mg/dL (70-99) White Blood Count 9.4 x10^3/uL (4.0-11.0) Red Blood Count 3.80 x10^6/uL (3.50-5.40) Hemoglobin 11.9 g/dL (12.0-15.5) Hematocrit 35.6 % (36.0-47.0) Mean Corpuscular Volume 94 fL (79-100) Mean Corpuscular Hemoglobin 31 pg (25-35) Mean Corpuscular Hemoglobin Concent 34 g/dL (31-37) Red Cell Distribution Width 16.0 % (11.5-14.5) Platelet Count 168 x10^3/uL (140-400) Neutrophils (%) (Auto) 48 % (31-73) Lymphocytes (%) (Auto) 43 % (24-48) Monocytes (%) (Auto) 6 % (0-9) Eosinophils (%) (Auto) 2 % (0-3) Basophils (%) (Auto) 1 % (0-3) Neutrophils # (Auto) 4.5 x10^3/uL (1.8-7.7) Lymphocytes # (Auto) 4.1 x10^3/uL (1.0-4.8) Monocytes # (Auto) 0.6 x10^3/uL (0.0-1.1) Eosinophils # (Auto) 0.2 x10^3/uL (0.0-0.7) Basophils # (Auto) 0.0 x10^3/uL (0.0-0.2) Sodium Level 140 mmol/L (136-145) Potassium Level 4.5 mmol/L (3.5-5.1) Chloride Level 106 mmol/L (98-107) Carbon Dioxide Level 24 mmol/L (21-32) Anion Gap 10 (6-14) Blood Urea Nitrogen 16 mg/dL (7-20) Creatinine 1.1 mg/dL (0.6-1.0) Estimated GFR (Cockcroft-Gault) 60.3 Glucose Level 89 mg/dL (70-99) Calcium Level 9.0 mg/dL (8.5-10.1) Phosphorus Level 2.9 mg/dL (2.6-4.7) Magnesium Level 1.8 mg/dL (1.8-2.4) Troponin I High Sensitivity 56 ng/L (4-50) Triglycerides Level 134 mg/dL (0-150) Cholesterol Level 145 mg/dL (0-200) LDL Cholesterol, Calculated 62 mg/dL (0-100) VLDL Cholesterol, Calculated 27 mg/dL (0-40) Non-HDL Cholesterol Calculated 89 mg/dL (0-129) HDL Cholesterol 56 mg/dL (40-60) Cholesterol/HDL Ratio 2.6 Test 06/21/21 11:10 Glucose (Fingerstick) 91 mg/dL (70-99) Assessment and Plan Assessmemt and Plan Problems Medical Problems: (1) Elevated troponin Status: Acute (2) Tachycardia Status: Acute Comment Review of Relevant I have reviewed the following items kelechi (where applicable) has been applied. Medications: Current Medications Medications (Trade) Dose Ordered Sig/Kat Route PRN Reason Start Time Stop Time Status Last Admin Dose Admin Aspirin (Aspirin Chewable) 324 mg 1X ONCE PO 06/20/21 12:30 06/20/21 12:31 DC 06/20/21 12:45 Sodium Chloride 1,000 ml @ 1,000 mls/hr Q1H IV 06/20/21 12:30 06/20/21 13:29 DC 06/20/21 12:45 Iohexol (Omnipaque 350 Mg/ml) 100 ml 1X ONCE IV 06/20/21 13:15 06/20/21 13:16 DC 06/20/21 13:36 Acetaminophen (Tylenol) 1,000 mg 1X ONCE PO 06/20/21 13:45 06/20/21 13:46 DC 06/20/21 14:24 Aspirin (Ecotrin) 81 mg [id number] PO 06/21/21 08:00 06/21/21 08:56 Sodium Chloride 1,000 ml @ 100 mls/hr Q10H IV 06/20/21 15:30 06/21/21 11:30 Enoxaparin Sodium (Lovenox 40mg Syringe) 40 mg QHS SQ 06/20/21 21:00 06/20/21 22:02 Potassium Chloride (Klor-Con) 40 meq 1X ONCE PO 06/20/21 18:00 06/20/21 18:01 DC 06/20/21 18:00 Cyclobenzaprine HCl (Flexeril) 10 mg TID PO 06/20/21 21:00 06/21/21 08:56 Metoprolol Succinate (Toprol Xl) 100 mg HS PO 06/20/21 21:00 06/20/21 22:02 Justifications for Admission Other Justification DAYA MEI MD Jun 21, 2021 12:27
--- NOTE | 2021-06-21 14:33 | PDOC2 ---
CARDIOLOGY CONSULT NOTE DATE OF SERVICE: DATE: 06/21/21 TIME: 14:24 CHIEF COMPLAINT: Palpitations and chest discomfort HPI: 65-year-old woman with past medical history as noted below who presents to the hospital in the setting of chest discomfort. She reports that she was in her usual state of health and over the last 2 to 3 days has had worsening palpitations and chest discomfort. She noticed it mostly when she was climbing a flight of stairs. Her biggest symptom appear to be mostly palpitations rather than angina. She denies any syncope, orthopnea, PND or lower extremity edema. No prior cardiovascular disease or hospitalizations/ER visits for cardiac interventions. Since admission to the hospital the patient denies any new symptoms. At baseline she is able to function and do all activities of daily living without any significant limitations. PMHX: 1. Hypertension 2. Dyslipidemia 3. Borderline diabetes 4. Tobacco abuse SOCHX: She lives at home with her . Denies any illicit drug use or excessive alcohol use. She does smoke about 1 pack/week FAMHX: Notable for her mother who had coronary artery disease before the age of 50. CURRENT MEDS: Aspirin and Toprol-XL Losartan 100 Diltiazem Atorvastatin and Zetia ALLERGIES: Allergies Coded Allergies Type Severity Reaction Last Updated Verified Sulfa (Sulfonamide Antibiotics) Allergy Severe swelling 04/20/16 Yes amlodipine Allergy Severe Anaphylaxis 04/19/16 Yes adhesive tape Adverse Reaction Intermediate Rash 04/19/16 Yes ROS: Negative for 10 out of 14 systems reviewed unless otherwise mentioned above in HPI PHYSICAL EXAM: Vital Signs/I&O: Vital Signs Date Time Temp Pulse Resp B/P (MAP) Pulse Ox O2 Delivery O2 Flow Rate FiO2 06/21/21 11:00 56 20 134/76 (95) 100 Room Air 06/21/21 06:47 98.0 98.0 I & O 06/20/21 06/20/21 06/21/21 15:00 23:00 07:00 Intake Total 1000 ml 200 ml Output Total 500 ml Balance 1000 ml -300 ml Physical Exam: GEN.: No apparent distress. Alert and oriented. HEENT: Head is normocephalic, atraumatic NECK: Supple. LUNGS: Clear to auscultation. HEART: RRR, S1, S2 present. Peripheral pulses intact ABDOMEN: Soft, nontender. Positive bowel sounds. EXTREMITIES: Without any cyanosis. NEUROLOGIC: Normal speech, normal tone PSYCHIATRIC: Normal affect, normal mood. SKIN: No ulcerations DIAGNOSTIC TESTING: EKG demonstrates sinus rhythm without any acute ischemic findings Troponins are minimally elevated at around 60 CT angiogram of the chest is unremarkable Lab Laboratory Tests Test 06/20/21 14:25 06/20/21 15:18 06/20/21 17:00 06/20/21 21:18 Influenza Type A Antigen Negative (NEGATIVE) Influenza Type B Antigen Negative (NEGATIVE) SARS-CoV-2 Antigen (Rapid) Negative (NEGATIVE) Troponin I High Sensitivity 63 ng/L (4-50) H Glucose (Fingerstick) 109 mg/dL (70-99) H 102 mg/dL (70-99) H Test 06/21/21 02:00 06/21/21 07:49 06/21/21 11:10 White Blood Count 9.4 x10^3/uL (4.0-11.0) Red Blood Count 3.80 x10^6/uL (3.50-5.40) Hemoglobin 11.9 g/dL (12.0-15.5) L Hematocrit 35.6 % (36.0-47.0) L Mean Corpuscular Volume 94 fL (79-100) Mean Corpuscular Hemoglobin 31 pg (25-35) Mean Corpuscular Hemoglobin Concent 34 g/dL (31-37) Red Cell Distribution Width 16.0 % (11.5-14.5) H Platelet Count 168 x10^3/uL (140-400) Neutrophils (%) (Auto) 48 % (31-73) Lymphocytes (%) (Auto) 43 % (24-48) Monocytes (%) (Auto) 6 % (0-9) Eosinophils (%) (Auto) 2 % (0-3) Basophils (%) (Auto) 1 % (0-3) Neutrophils # (Auto) 4.5 x10^3/uL (1.8-7.7) Lymphocytes # (Auto) 4.1 x10^3/uL (1.0-4.8) Monocytes # (Auto) 0.6 x10^3/uL (0.0-1.1) Eosinophils # (Auto) 0.2 x10^3/uL (0.0-0.7) Basophils # (Auto) 0.0 x10^3/uL (0.0-0.2) Sodium Level 140 mmol/L (136-145) Potassium Level 4.5 mmol/L (3.5-5.1) # Chloride Level 106 mmol/L (98-107) Carbon Dioxide Level 24 mmol/L (21-32) Anion Gap 10 (6-14) Blood Urea Nitrogen 16 mg/dL (7-20) Creatinine 1.1 mg/dL (0.6-1.0) H Estimated GFR (Cockcroft-Gault) 60.3 Glucose Level 89 mg/dL (70-99) Calcium Level 9.0 mg/dL (8.5-10.1) Phosphorus Level 2.9 mg/dL (2.6-4.7) Troponin I High Sensitivity 56 ng/L (4-50) H Cholesterol Level 145 mg/dL (0-200) LDL Cholesterol, Calculated 62 mg/dL (0-100) VLDL Cholesterol, Calculated 27 mg/dL (0-40) Non-HDL Cholesterol Calculated 89 mg/dL (0-129) Cholesterol/HDL Ratio 2.6 Glucose (Fingerstick) 82 mg/dL (70-99) 91 mg/dL (70-99) Laboratory Tests 06/21/21 02:00 ASSESSMENT: 1. Non-STEMI, likely type II in the setting of probable palpitations or SVT 2. Multiple risk factors with atypical chest pain, cannot rule out occult ischemia 3. Hypertension PLAN: 1. Given the patient's risk factors I had a long discussion with her regarding possibility of a cardiac catheterization versus outpatient stress testing. She wishes to have outpatient stress testing. We will monitor her overnight and if she has no trouble with ambulation today and does well overnight without any arrhythmias then we will likely discharge her tomorrow with outpatient stress te sting. Obtain echocardiogram tomorrow prior to discharge. Of note, patient did have a stress test in 2017 which was unremarkable. Thank you for this consultation. URMILA OREILLY MD Jun 21, 2021 14:33
[2021-06-21 14:59] VITALS: BP 152/72
[2021-06-21 19:55] VITALS: BP 146/75
[2021-06-21] MEDS: METOPROLOL SUCC 24HR ER 100 MG TAB.ER.24H. PO SCH (22:06)
[2021-06-21] MEDS: ENOXAPARIN 40 MG/0.4 ML SYRINGE. SQ SCH (22:07)
[2021-06-21 23:21] VITALS: BP 174/66
[2021-06-22 02:28] VITALS: BP 144/66
[2021-06-22 06:46] LABS: BASO % 1 % (0-3); EOS # 0.2 x10^3/uL (0.0-0.7); EOS % 2 % (0-3); HEMATOCRIT 36.5 % (36.0-47.0); HEMOGLOBIN 11.9 g/dL (12.0-15.5); LYMPH # 2.8 x10^3/uL (1.0-4.8); LYMPH % 44 % (24-48); MEAN CORPUSCULAR HEMOGLOBIN 31 pg (25-35); MEAN CORPUSCULAR HGB CONC 33 g/dL (31-37); MEAN CORPUSCULAR VOLUME 93 fL (79-100); MONO # 0.4 x10^3/uL (0.0-1.1); MONO % 6 % (0-9); NEUT % 47 % (31-73); PLATELET COUNT 163 x10^3/uL (140-400); RED BLOOD COUNT 3.91 x10^6/uL (3.50-5.40); RED CELL DISTRIBUTION WIDTH 15.8 % (11.5-14.5); WHITE BLOOD COUNT 6.3 x10^3/uL (4.0-11.0)
[2021-06-22 07:00] VITALS: BP 160/70
[2021-06-22 07:13] LABS: CALCIUM 9.5 mg/dL (8.5-10.1); GFR 67.3; POTASSIUM 4.3 mmol/L (3.5-5.1)
[2021-06-22] MEDS: INSULIN LISPRO 300 UNITS/3 ML VIAL. SQ SCH ×2 (08:00→11:57)
[2021-06-22] MEDS: MINOCYCLINE HCL 50 MG PO SCH (09:00)
--- NOTE | 2021-06-22 09:59 | EKG ---
[facility] [address] [place] [address] Test Date: 2021-06-20 Test Time: 14:20:36 Pat Name: MALINDA RICHARDSON Department: Room: [facility] Gender: F Interior Decorator: : 1955 Requested By: JONATHAN COLLAZO Order Number: [id number] Reading MD: Pierce Morrissey Measurements Intervals [place] Rate: 88 P: 41 VT: 158 QRS: 5 QRSD: 80 T: 64 QT: 354 QTc: 432 Interpretive Statements SINUS RHYTHM LEFT ATRIAL ABNORMALITY Electronically Signed On 06-24-2021 18:40:19 CDT by Pierce Morrissey
--- NOTE | 2021-06-22 09:59 | EKG ---
[facility] [address] [place] [address] Test Date: 2021-06-20 Test Time: 12:17:26 Pat Name: MALINDA RICHARDSON Department: Room: [facility] Gender: F Market Stall Vendor: : 1955 Requested By: JONATHAN COLLAZO Order Number: [id number] Reading MD: Pierce Morrissey Measurements Intervals [place] Rate: 104 P: 16 SC: 142 QRS: 20 QRSD: 80 T: 49 QT: 322 QTc: 424 Interpretive Statements SINUS TACHYCARDIA LEFT ATRIAL ABNORMALITY Electronically Signed On 06-24-2021 18:45:35 CDT by Pierce Morrissey
[2021-06-22 11:00] VITALS: BP 152/85
--- NOTE | 2021-06-22 11:27 | PDOC ---
CINDY GIBBS REED 06/22/21 1127: CARDIO Progress Notes Date and Time Date of Service 06/22/21 Time of Evaluation 1120 Subjective Subjective: No Chest Pain, No Palpitations, No Dizziness Vitals Vitals Vital Signs Date Time Temp Pulse Resp B/P (MAP) Pulse Ox O2 Delivery O2 Flow Rate FiO2 06/22/21 08:00 Room Air 06/22/21 07:00 98.0 66 18 160/70 (100) 100 98.0 Weight Weight [ ] Input and Output Intake and Output Intake and Output 06/22/21 07:00 Intake Total 200 ml Balance 200 ml Intake Oral 200 ml # Voids 1 Laboratory Labs Laboratory Tests Test 06/21/21 16:25 06/21/21 21:00 06/22/21 05:30 06/22/21 08:31 Glucose (Fingerstick) 82 mg/dL (70-99) 103 mg/dL (70-99) 91 mg/dL (70-99) White Blood Count 6.3 x10^3/uL (4.0-11.0) Red Blood Count 3.91 x10^6/uL (3.50-5.40) Hemoglobin 11.9 g/dL (12.0-15.5) Hematocrit 36.5 % (36.0-47.0) Mean Corpuscular Volume 93 fL (79-100) Mean Corpuscular Hemoglobin 31 pg (25-35) Mean Corpuscular Hemoglobin Concent 33 g/dL (31-37) Red Cell Distribution Width 15.8 % (11.5-14.5) Platelet Count 163 x10^3/uL (140-400) Neutrophils (%) (Auto) 47 % (31-73) Lymphocytes (%) (Auto) 44 % (24-48) Monocytes (%) (Auto) 6 % (0-9) Eosinophils (%) (Auto) 2 % (0-3) Basophils (%) (Auto) 1 % (0-3) Neutrophils # (Auto) 3.0 x10^3/uL (1.8-7.7) Lymphocytes # (Auto) 2.8 x10^3/uL (1.0-4.8) Monocytes # (Auto) 0.4 x10^3/uL (0.0-1.1) Eosinophils # (Auto) 0.2 x10^3/uL (0.0-0.7) Basophils # (Auto) 0.0 x10^3/uL (0.0-0.2) Sodium Level 140 mmol/L (136-145) Potassium Level 4.3 mmol/L (3.5-5.1) Chloride Level 105 mmol/L (98-107) Carbon Dioxide Level 24 mmol/L (21-32) Anion Gap 11 (6-14) Blood Urea Nitrogen 13 mg/dL (7-20) Creatinine 1.0 mg/dL (0.6-1.0) Estimated GFR (Cockcroft-Gault) 67.3 Glucose Level 86 mg/dL (70-99) Calcium Level 9.5 mg/dL (8.5-10.1) Magnesium Level 2.0 mg/dL (1.8-2.4) Physical Exam HEENT: Neck Supple W Full Motion Chest: Symmetric LUNGS: Clear to Auscultation Heart: RRR Abdomen: Soft N/T Extremities: No Edema Neurology: alert, oriented, follow commands Assessment Assessment 1. Non-STEMI, likely type II in the setting of probable palpitations or SVT 2. Multiple risk factors with atypical chest pain, cannot rule out occult i schemia 3. Hypertension; better controlled Recommendations Echo today Continue metoprolol for rate control Consider outpatient event monitor Will arrange outpatient stress and follow up in our office with Dr. Casarez Justicifation of Admission Dx: Justifications for Admission: Justification of Admission Dx: Yes Comments: Chest pain Hypertension URMILA CASAREZ MD 06/22/21 6790: CARDIO Progress Notes Plan Plan The patient was seen and interviewed as well as examined at the bedside. The chart was reviewed. The case was discussed. Agree with the plan of care. CINDY GIBBS APRN Jun 22, 2021 11:27 URMILA CASAREZ MD Jun 22, 2021 23:48
[2021-06-22] MEDS ORDERED: ASPI-886 PO (11:38)
--- NOTE | 2021-06-22 11:41 | PDOC3 ---
[facility]-Discharge Summary Date of Admission: Date of Admission: Jun 20, 2021 Date of Discharge: Date of Discharge: Jun 22, 2021 Admission Diagnosis: Admitting Diagnosis: Chest pain tachycardia Discharge Diagnosis: Discharge Diagnosis: Resolved chest pain Consults: Consults: Cardiology Hospital Course: Hospital Course: Chief Complaint Assessment/Plan Atypical chest discomfort concerning for unstable angina/NSTEMI, multiple risk factors Hypertensive urgency History of diabetes mellitus type 2 ROSALIE due to vasomotor nephropathy Mild hypokalemia Elevated troponin suggestive of type II demand ischemia Admit to hospitalist service for further management Cardiology consult Resume home antihypertensive medications, will hold HCTZ and lisinopril due to ROSALIE Antihypertensive medications to maintain systolic blood pressure between 1 40-1 80 Pending lipid panel IV morphine as needed Maintain O2 sats between 88 to 95% Trend troponins Repeat EKG in the a.m. Continue telemetry monitoring Monitor for electrolyte abnormalities Avoid NSAIDs Lovenox for DVT prophylaxis Protonix GI prophylaxis ADA diet CODE STATUS full Discussed with RN and SW Disposition inpatient management as above DPOA: History of Present Illness History of Present Illness 65-year-old female with past medical history of diabetes, hypertension, dyslipidemia and recurrent hidradenitis suppurativa and multiple surgeries for that. Patient comes in for palpitations on her left side of her chest and some dizziness and shortness of breath that started last night. She also had some hot flashes. She is never had feelings like this before so thus far she decided to come in to be evaluated. Denies abdominal pain, nausea, vomiting, diarrhea, focal weakness, fevers, cough, back pain, urinary symptoms, vision change, sync ope. 06/21/2021 No acute events overnight. Patient seen examined bedside. Patient clinically feels better. Creatinine improved to 1.1. Troponins were stable throughout the night. Pending cardiology evaluation. Patient's chart, labs, images were revie wed and discussed with RN 06/22 Evaluated examined at bedside. Clinically stable no complaints. Discussed with cardiology team. Plan for echo today and then discharge with outpatient follow- up. Greater than 30 minutes spent on discharge. 21 minutes advance care planning. Disposition: Disposition/Orders: D/C to Home Activity: Activity: Resume previous activity Diet: Diet: Cardiac Medications: Home Meds Active Scripts Aspirin (ASPIRIN EC) 81 Mg Tablet., 81 MG PO DAILYWBKFT for cad for 30 Days, #30 TAB.SR Prov:HANY GUIDRY MD 06/22/21 Benazepril/Hydrochlorothiazide (BENAZEPRIL-HCTZ 20-12.5 MG TAB) 1 Each Tablet, 1 TAB PO DAILY, #30 TAB 1 Refill Prov:ABBEY KRISHNAMURTHY MD 02/07/18 Reported Medications Oxycodone/Apap 7.5-325 (PERCOCET 7.5-325 MG TABLET ) 1 Each Tablet, 1 TAB PO PRN Q3HRS PRN for PAIN, TAB 0 Refills LAST DOSE GIVEN: DATE:04-22-16 TIME:12:30 p.m. NEXT DOSE DUE: DATE:04-22-16 TIME: 3:30 p.m. if needed for pain as directed 04/22/16 Warfarin Sodium (COUMADIN) 5 Mg Tablet, 1 TAB PO DAILY for blood thinner, #90 TAB 1 Refill LAST DOSE GIVEN: DATE:04-22-16 TIME:12:30 p.m. NEXT DOSE DUE: DATE:02-20-17 TIME:5:00 p.m. 04/22/16 Cetirizine Hcl (ZYRTEC) 10 Mg Capsule, 10 MG PO DAILY for allergies LAST DOSE GIVEN: DATE:04-22-16 TIME:8:30 a.m. NEXT DOSE DUE: DATE:04-23-16 TIME:8:30 a.m. 03/19/16 Cyclobenzaprine Hcl (CYCLOBENZAPRINE HCL) 10 Mg Tablet, 10 MG PO TID for muscle spasms, TAB LAST DOSE GIVEN: DATE:04-22-16 TIME:2:30 p.m. NEXT DOSE DUE: DATE:04-22-16 TIME:9:00 p.m. 03/19/16 Pravastatin Sodium (PRAVASTATIN SODIUM) 10 Mg Tablet, 1 TAB PO QHS for high cholesterol, #90 TAB 3 Refills LAST DOSE GIVEN: DATE:04-22-16 TIME:9:00 p.m. NEXT DOSE DUE: DATE:04-23-16 TIME:9:00 p.m. 03/19/16 Metformin Hcl (METFORMIN HCL) 1,000 Mg Tablet, 1000 MG PO DAILYWBKFT for ANTI- DIABETIC, TAB 0 Refills LAST DOSE GIVEN: DATE:04-22-16 TIME:8:30 a.m. NEXT DOSE DUE: DATE:04-22-16 TIME:5:00 p.m. 03/19/16 Metoprolol Succinate (TOPROL XL) 100 Mg Tab.er.24h, 100 MG PO HS for FOR HYPERTENSION, #30 TAB 0 Refills LAST DOSE GIVEN: DATE:04-21-16 TIME:9:00 p.m. NEXT DOSE DUE: DATE:04-22-16 TIME:9:00 p.m. 03/19/16 Minocycline Hcl (MINOCYCLINE HCL) 50 Mg Capsule, 50 MG PO DAILY for acne Not given while in hosp. May resume at home as directed. 03/19/16 Discontinued Reported Medications Benazepril/Hydrochlorothiazide (BENAZEPRIL-HCTZ 10-12.5 MG TAB) 1 Each Tablet, 1 EACH PO DAILY for hypertension, TAB LAST DOSE GIVEN: DATE: 04-22-16 TIME:8:30 a.m. NEXT DOSE DUE: DATE: 04-23-16 TIME: 8:30 a.m. 03/19/16 Scheduled Aspirin (Aspirin Ec), 81 MG PO DAILYWBKFT Benazepril/Hydrochlorothiazide (Benazepril-Hctz 20-12.5 Mg Tab), 1 TAB PO DAILY Cetirizine Hcl (Zyrtec), 10 MG PO DAILY, (Reported) Cyclobenzaprine Hcl (Cyclobenzaprine Hcl), 10 MG PO TID, (Reported) Metformin Hcl (Metformin Hcl), 1,000 MG PO DAILYWBKFT, (Reported) Metoprolol Succinate (Toprol Xl), 100 MG PO HS, (Reported) Minocycline Hcl (Minocycline Hcl), 50 MG PO DAILY, (Reported) Pravastatin Sodium (Pravastatin Sodium), 1 TAB PO QHS, (Reported) Warfarin Sodium (Coumadin), 1 TAB PO DAILY, (Reported) Scheduled PRN Oxycodone/Apap 7.5-325 (Percocet 7.5-325 Mg Tablet ), 1 TAB PO PRN Q3HRS PRN for PAIN, (Reported) Discontinued Medications Benazepril/Hydrochlorothiazide (Benazepril-Hctz 10-12.5 Mg Tab), 1 EACH PO DAILY, (Reported) Justicifation of Admission Dx: Justifications for Admission: Justification of Admission Dx: Yes (chest pain) HANY GUIDRY MD Jun 22, 2021 11:41
[2021-06-22] MEDS: ASPIRIN ENTERIC COATED 81 MG TABLET.DR. PO SCH (11:54)
[2021-06-22] MEDS: CYCLOBENZAPRINE 10 MG TABLET. PO SCH ×2 (11:54→14:29)
[2021-06-22 15:00] VITALS: BP 128/55
--- NOTE | 2021-06-22 15:09 | NUR ---
reviewed discharge instructions regarding follow up with Dr. Law and [facility] phone numbers provided. reviewed medications and the ones she needs to resume. here to pick. leads removed. . saline lock dc'd questions answered.
--- NOTE | 2021-06-22 15:13 | NUR ---
SS following for discharge planning. SS reviewed pt chart and discussed with pt RN. Pt is from home and is currently on room air. COVID19 negative. Discharge order on the chart for home with self care.
--- NOTE | 2021-06-22 17:28 | CARD ---
MR#: [id number] Date of Study: 06/22/2021 Ordering Physician: URMILA OREILLY, Referring Physician: URMILA OREILLY, Tech: Sarina Garay [facility] APPROVED REPORT EXAM: Two-dimensional and M-mode echocardiogram with Doppler and color Doppler. Other Information Quality : AverageHR: 80bpm Rhythm : NSR INDICATION Chest Pain 2D DIMENSIONS RVDd2.7 (2.9-3.5cm)Left Atrium(2D)3.8 (1.6-4.0cm) IVSd1.9 (0.7-1.1cm)Aortic Root(2D)2.8 (2.0-3.7cm) LVDd3.8 (3.9-5.9cm)LVOT Diameter2.2 (1.8-2.4cm) PWd1.6 (0.7-1.1cm)LVDs1.6 (2.5-4.0cm) FS (%) 58.6 %SV54.2 ml Aortic Valve AoV Peak Yg.171.0cm/sAoV VTI40.4cm AO Peak GR.11.7mmHgLVOT Peak Yg.167.4cm/s AO Mean GR.7mmHgAVA (VMAX)3.74cm2 Mitral Valve MV E Hhwujsym404.8cm/sMV DECEL HUXU150gg MV A Lzwqecau232.8cm/sE/A Ratio0.9 Pulmonary Valve PV Peak Hzhnhgns522.3cm/s LEFT VENTRICLE The left ventricle is normal size. There is moderate concentric left ventricular hypertrophy. The lef t ventricular systolic function is normal and the ejection fraction is within normal range. LV ejecti on fraction is 55 to 60%. There is normal LV segmental wall motion. Transmitral Doppler flow pattern is Grade I-abnormal relaxation pattern. No left ventricle thrombus noted on this study. There is no v entricular septal defect visualized. There is no left ventricular aneurysm. There is no mass noted in the left ventricle. RIGHT VENTRICLE The right ventricle is normal size. There is normal right ventricular wall thickness. The right ventr icular systolic function is normal. ATRIA The left atrium size is normal. The right atrium size is normal. The interatrial septum is intact wit h no evidence for an atrial septal defect or patent foramen ovale as noted on 2-D or Doppler imaging. AORTIC VALVE The aortic valve is normal in structure and function. Doppler and Color Flow revealed trace aortic re gurgitation. There is no significant aortic valvular stenosis. There is no aortic valvular vegetation . MITRAL VALVE The mitral valve is normal in structure and function. There is no evidence of mitral valve prolapse. There is no mitral valve stenosis. Doppler and Color-flow revealed trace mitral regurgitation. TRICUSPID VALVE The tricuspid valve is normal in structure and function. Doppler and Color Flow revealed no tricuspid valve regurgitation noted. There is no tricuspid valve prolapse or vegetation. There is no tricuspid valve stenosis. PULMONIC VALVE The pulmonary valve is normal in structure and function. There is trivial pulmonic regurgitation. The re is no pulmonic valvular stenosis. GREAT VESSELS The aortic root is normal in size. The ascending aorta is normal in size. The pulmonary artery is nor mal. The IVC is normal in size and collapses >50% with inspiration. PERICARDIAL EFFUSION There is no pleural effusion. There is no evidence of significant pericardial effusion. Critical Notification Critical Value: No <Conclusion> The left ventricle is normal size. The left ventricular systolic function is normal and the ejection fraction is within normal range. LV ejection fraction is 55 to 60%. There is moderate concentric left ventricular hypertrophy. Doppler and Color Flow revealed trace aortic regurgitation. There is no significant aortic valvular stenosis. Doppler and Color-flow revealed trace mitral regurgitation. Doppler and Color Flow revealed no tricuspid valve regurgitation noted. Signed by : Sanjay Weinberg MD Electronically Approved : 06/22/2021 17:27:54
== END 2021-06-22 15:15 | disposition home or self-care (01) | DRG 280 ==
LOC: ER 12:04 → 6 SOUTH 14:36 → OBSVTOIN 06-21 21:01
PROVIDERS: ADMIT Internal Medicine; ATTEND Internal Medicine
DX: I47.1 Supraventricular tachycardia (principal); N17.0 Acute kidney failure with tubular necrosis; I21.A1 Myocardial infarction type 2; I25.110 Atherosclerotic heart disease of native coronary artery with unstable angina pectoris; E11.9 Type 2 diabetes mellitus without complications; E78.00 Pure hypercholesterolemia, unspecified; E78.5 Hyperlipidemia, unspecified; E87.6 Hypokalemia; F12.90 Cannabis use, unspecified, uncomplicated; I10 Essential (primary) hypertension; K21.9 Gastro-esophageal reflux disease without esophagitis; K22.9 Disease of esophagus, unspecified; K57.30 Diverticulosis of large intestine without perforation or abscess without bleeding; N95.1 Menopausal and female climacteric states; R13.10 Dysphagia, unspecified; Z82.49 Family history of ischemic heart disease and other diseases of the circulatory system; Z90.49 Acquired absence of other specified parts of digestive tract; Z90.710 Acquired absence of both cervix and uterus; G89.29 Other chronic pain; Z20.822 Contact with and (suspected) exposure to COVID-19; Z88.2 Allergy status to sulfonamides; Z88.8 Allergy status to other drugs, medicaments and biological substances; Z91.018 Allergy to other foods; I16.0 Hypertensive urgency; F17.210 Nicotine dependence, cigarettes, uncomplicated
CPT/HCPCS: 36415; 71045; 71275; 80053; 80307; 81001; 82962; 83735; 83880; 84443; 84484; 85025; 85610; 85730; 87428; J1650; J1815; J7030; Q9967; 80048; 80061; 84100; 93005; 93306; 96360; 96361; G0378; G0379; 99285-25; C8929

== ENCOUNTER → 2021-07-01 | Outpatient (CLI) | payer BC ==
[2021-06-22 15:00] VITALS: BP 128/55
[~2021-07-01] MED LIST changes: +ASPI-886 PO; +DEXAMETHASONE PRES.FREE 10 MG/ML VIAL. ONE; +IOHEXOL 180 MG/ML 10 ML VIAL. ONE; +MELO15TA23 PO
--- NOTE | 2021-07-01 15:22 | PDOC4 ---
Procedure Note: ICD 10 Code: ICD 10 Code: M54.16 M51.36 Procedure Note: Patient was consented for lumbar epidural steroid injection with fluoroscopic guidance. Risks were discussed including but not limited to: Bleeding, infection, possibility of epidural hematoma and subsequent neurological compromise, dural puncture, headaches, spinal cord and/or nerve damage, side effects of steroid medication, and poor results regarding pain control. Patient understands and wished to proceed. Procedure is lumbar epidural steroid injection under local anesthetic using sterile prep and drape at the L4-5 level using C-arm fluoroscopic guidance in both AP and lateral views medications injected is 20 mg dexamethasone +10mL preservative-free normal saline and 2 mL contrast- condition at discharge is stable patient tolerated procedure well had no complications. QIAN CHÁVEZ MD Jul 01, 2021 15:22
--- NOTE | 2021-07-01 15:22 | PDOC1 ---
INITIAL PAIN CONSULT DATE OF SERVICE: DOS: DATE: 07/01/21 TIME: 15:15 CHIEF COMPLAINT: Chief Complaint: Low back and left lower extremity pain HISTORY OF PRESENT ILLNESS: 65-year-old female presents with history of pain low back left lower extremity for about 7 to 8 months without the result of any specific injury or accident just got worse 1 day was present in the low back left lower extremity posterior gluteus posterior lateral thigh lateral anterior thigh anteromedial thigh medial lower leg and into the calf patient reports is also in the foot with some numbness and tingling and burning in the foot becoming more constant patient reports its throbbing and aching in the back radiating shooting with aching pain in the leg as well patient reports is worse with walking standing changing positions better with sitting or laying down wakes her from sleep about once or twice every night does not affect her bowel bladder control does affect her ability walk and she has a cane that she is using in her right hand. Patient has tried Flexeril as well as Aleve [id number] without significant improvement but only mild improvement patient reports she has done physical therapy in the past nothing recently still doing some stretching strength exercises from those therapy sessions but without significant relief of pain. Patient had epidural injections in 2013 at an outside facility which she reports were quite helpful for similar pain in the right leg at that time. Patient did have plain films performed of the lumbar spine showing grade 1 L4-L5 a nterolisthesis with mild to moderate degenerative disc disease at L4-5 and L5- S1. Patient rates her disability rating, 0-10 10 being the worst, 9 with family home responsibilities 10 with recreation 8 with social activity 5 with occupation and 7 with life support activities. Patient reports a loss of motor function with significant fatigability of left lower extremity. Patient reports no bowel or bladder incontinence. PAST MEDICAL HISTORY: PMH: Borderline diabetes, hypertension, hyperlipidemia, gastroesophageal reflux, arthritis PREVIOUS SURGERIES: Past Surgical Hx: Total abdominal hysterectomy, appendectomy, tonsillectomy, cystectomy bilateral axilla CURRENT MEDICATIONS: Current Meds: Active Scripts Medications Dose Route/Sig Max Daily Dose Days Date Category Dose Instructions Meloxicam 15 Mg Tablet 1 Tab PO DAILY 30 07/01/21 Reported Benazepril-Hctz 20-12.5 Mg Tab (Benazepril/Hydrochlorothiazide) 1 Each Tablet 1 Tab PO DAILY 02/07/18 Rx Zyrtec (Cetirizine Hcl) 10 Mg Capsule 10 Mg PO DAILY 03/19/16 Reported LAST DOSE GIVEN: DATE:04-24-21 TIME:8:30 a.m. NEXT DOSE DUE: DATE:04-25-21 TIME:8:30 a.m. Pravastatin Sodium 10 Mg Tablet 1 Tab PO QHS 03/19/16 Reported Metformin Hcl 1,000 Mg Tablet 1,000 Mg PO DAILYWBKFT 03/19/16 Reported Toprol Xl (Metoprolol Succinate) 100 Mg Tab.er.24h 100 Mg PO HS 03/19/16 Reported Minocycline Hcl 50 Mg Capsule 50 Mg PO DAILY 03/19/16 Reported Not given while in hosp. May resume at home as directed. ALLERGIES; Allergies: Coded Allergies: Sulfa (Sulfonamide Antibiotics) (Verified Allergy, Severe, swelling, 04/20/16) amlodipine (Verified Allergy, Severe, Anaphylaxis, 04/19/16) adhesive tape (Verified Adverse Reaction, Intermediate, Rash, 04/19/16) FAMILY HISTORY: Family Hx: Heart disease, cancers, hypertension, diabetes SOCIAL HISTORY: Social Hx: Patient is alcohol about once a week glass of wine, smokes 2 to 4 cigarettes daily and has for 40 years, uses marijuana daily as well, patient is lives locally in [facility] REVIEW OF SYSTEMS: ROS: Positive for those items mentioned in history of present illness, all systems ar e reviewed, otherwise negative ,and are complete full and well-documented on patient's chart. PHYSICAL EXAM: VS: Blood pressure is 142/89 pulse 75 respiration 16 temperature 98.3 F height is 5 foot 6 inches weight is 167 pounds PE: PHYSICAL EXAMINATION: GENERAL: The patient is awake, alert, oriented, appropriate, very pleasant in demeanor HEENT: Shows normocephalic, atraumatic. Extraocular movements are intact and symmetrical. Oral cavity: Mucous membranes moist and pink. Dentition is intact. NECK: Shows anterior throat supple without palpable lymphadenopathy noted. Swallow reflex symmetrical. CHEST: Shows normal on inspection. Breath sounds are clear bilaterally, no rales rhonchi or wheezes auscultated. HEART: Shows S1, S2 clear. No murmurs auscultated. ABDOMEN: Soft, nontender, nondistended. No palpable organomegaly is noted. BACK: Shows spine grossly in the midline. Normal-appearing cervical lordotic curvature. There is slightly increased thoracic kyphosis, some minor flattening of the lumbar lordotic curvature. Lumbar paraspinous muscles show symmetrical on inspection, on palpation shows some moderate tenderness diffusely throughout the upper, middle and lower distribution of the paraspinous muscles bilaterally and also into the lower thoracic paraspinous musculature, firm and tender, but without specific trigger points, without radiation of pain. The patient has good rotational motion of the lumbar spine, both laterally as well as extension and flexion without significant difficulty. No tenderness over the spinous processes, sacrum or sacroiliac regions. EXTREMITIES: Lower extremities show deep tendon reflexes 2+ in the patellar and tendo calcaneus tendons. Motor exam is 5 on a scale of 5 with right dorsiflexion, extension, quadriceps and hamstring flexion and 4/5 on the left. Peripheral pulses are 1+ posterior tibial. No peripheral edema is noted bilaterally. Lower extremities are warm and dry to touch, equal in color and appearance. Straight leg raise noted to be positive on the left approximate 40 degrees, decreased with knee flexion, right side is negative. Gaenslen's and Bryn's maneuvers are negative bilaterally. The patient is able to stand, stand on her toes walks with a slight favoring gait does appear to favor the left lower extremity and is using a cane in her right hand to ambulate. SKIN: Shows warm and dry, good turgor. No edema. No sores, rashes or bruising throughout. IMPRESSION: Impression: 65-year-old female with 7 to 8-month history of low back left lower extremity pain and radicular fashion. Plain films lumbar spine as noted Borderline diabetes Hypertension Hyperlipidemia Osteoarthritis Plan: Options were discussed with patient including conservative measures physical therapies interventional techniques. Patient like to pursue interventional techniques. We discussed a lumbar epidural steroid injection using descriptions as well as anatomical models to describe the procedure. Ri sks were discussed including but not limited to: Bleeding, infection, possibility of epidural hematoma and subsequent neurological compromise, dural puncture, headaches, spinal cord and/or nerve damage, side effects of steroid medication, and poor results regarding pain control. Patient understands and wished to proceed. Patient will return to the clinic in approximately 2 weeks for follow-up, was counseled as to return appointment, active level, and side effects to be aware of. Procedure is lumbar epidural steroid injection under local anesthetic using sterile prep and drape at the L4-5 level using C-arm fluoroscopic guidance in both AP and lateral views medications injected is 20 mg dexamethasone +10mL preservative-free normal saline and 2 mL contrast- condition at discharge is stable patient tolerated procedure well had no complications. QIAN CHÁVEZ MD Jul 01, 2021 15:21
== END | disposition home or self-care (01) ==
LOC: PNCL 09:00
PROVIDERS: ATTEND Anesthesiology
DX: M51.16 Intervertebral disc disorders with radiculopathy, lumbar region (principal); M79.605 Pain in left leg; I10 Essential (primary) hypertension; K21.9 Gastro-esophageal reflux disease without esophagitis; M19.90 Unspecified osteoarthritis, unspecified site; E78.00 Pure hypercholesterolemia, unspecified; E11.9 Type 2 diabetes mellitus without complications; Z90.710 Acquired absence of both cervix and uterus; Z98.890 Other specified postprocedural states; Z79.899 Other long term (current) drug therapy; Z82.49 Family history of ischemic heart disease and other diseases of the circulatory system
CPT/HCPCS: 62323; G0463; J1100; Q9965

== ENCOUNTER → 2021-07-13 | Outpatient (CLI) | payer BC ==
[2021-06-22 15:00] VITALS: BP 128/55
[~2021-07-13] MED LIST changes: -DEXAMETHASONE PRES.FREE 10 MG/ML VIAL. ONE; -IOHEXOL 180 MG/ML 10 ML VIAL. ONE; +REGADENOSON 0.4 MG/5 ML DISP.SYRIN. IV ONE
--- NOTE | 2021-07-14 12:21 | RAD ---
MR#: [id number] Date of Study: 07/13/2021 Ordering Physician: URMILA CASAREZ, Referring Physician: TORY SOLIS Tech: JONATHON Barrow ARRT (R) (N) APPROVED REPORT Test Type: Pharmacological Stress Nurse/Tech: Beatrice Bush RN Test Indications: Chest pain Cardiac History: Hypertension, Diabetes,palpitations,smoker former? Medications: See Electronic Medical Record Medical History: See Electronic Medical Record Resting ECG: SR Resting Heart Rate: 75 bpm Resting Blood Pressure: 179/79mmHg Pretest Chest Pain: No chest pain Nurse/Tech Notes S1,S2 and lungs clear to auscultation. Consent: The procedure was explained to the patient in lay terms. Informed consent was witnessed. Derrick eout was entered into [facility]. History and Stress Test performed by MIKE Chapin Pharm. Details Pharmacologic stress testing was performed using 0.4mg per 5ml of regadenoson given intravenously ove r 7-10 seconds. Stress Symptoms No chest pain or symptoms. POST EXERCISE Reason for Termination: Infusion complete Target HR: No Max HR: 114 bpm 87% of Maximum Predicted HR: 131 bpm Max Blood Pressure: 211/72mmHg Blood Pressure response to exercise: Normal blood pressure response during stress. Heart Rate response to exercise: WNL Chest Pain: No. Arrhythmia: No. ST Change: No. INTERPRETATION Stress EKG Conclusion: No evidence of stress induced EKG changes. Imaging Protocol IMAGE PROTOCOL: Rest Tc-99m/stress Tc-99m 1 day Rest: Stress: Viability: Radiopharm.Tc99m [id number] Sestamibi Iabz73eIw 32mCi Img Date 07/13/2021 07/13/2021 Inj-Img Adth67hao. 60min. Rest Admin Site:IV - Left AntecubitalAdministrator:JONATHON Barrow, ZAYDA (R)(N) Stress Admin Site: IV - Left AntecubitalAdministrator: MIKE Chapin STRESS DATA End Diast. Vol.40.0mlLVEDV index BSA21.0ml End Syst. Vol.10.0mlLVESV index BSA5.0ml Myocardial Mass86.0gEject. Wjbkjbnp20.0% Stress Scores Regional WT1.00Summed WT11.00 Regional WM0.00Summed WM9.00 The rest and stress images show normal perfusion, normal contraction and thickening. LV Perf. Quant 17 Seg. SSS0.00 17 Seg. SRS0.00 17 Seg. SDS0.00 Stress Defect Extent (% LAD)0.00Rest Defect Extent (% LAD)0.00Rev. Defect Extent (% LAD)0.00 Stress Defect Extent (% LCX) 0.00Rest Defect Extent (% LCX)0.00Rev. Defect Extent (% LCX)0.00 Stress Defect Extent (% RCA)0.00Rest Defect Extent (% RCA)0.00Rev. Defect Extent (% RCA)0.00 Stress Defect Extent (% TIM)0.00Rest Defect Extent (% TIM)0.00Rev. Defect Extent (% TIM)0.00 Other Information Quality:Average Risk Assessment: Low Risk Conclusion 1. No evidence of EKG changes with stress testing. 2. Normal perfusion at stress/rest. 3. Low risk study. 4. EF > 60%. Signed by : Urmila Casarez, Electronically Approved : 07/13/2021 17:47:12
== END ==
LOC: NM 09:09
PROVIDERS: ATTEND Internal Medicine Cardiovascular Disease
DX: R07.9 Chest pain, unspecified (principal)
CPT/HCPCS: 78452; 93017; A9500; J2785

== ENCOUNTER → 2021-08-04 | Outpatient (CLI) | payer BC ==
[~2021-08-04] MED LIST changes: +DEXAMETHASONE PRES.FREE 10 MG/ML VIAL. ONE; +IOHEXOL 180 MG/ML 10 ML VIAL. ONE; -REGADENOSON 0.4 MG/5 ML DISP.SYRIN. IV ONE
--- NOTE | 2021-08-04 08:54 | PDOC ---
Progress Note - Pain Clinic Date of Service: DOS: DATE: 08/04/21 TIME: 08:51 Diagnosis: Dx: Lumbar radiculopathy with lumbar degenerative disc disease History or Present Illness: HPI: 65-year-old female returns for follow-up status post lumbar epidural steroid injection x1. Patient reports she did much better about 50% improvement with pain in the low back and left lower extremity patient reports that since her last visit she has had pain on the right side now in the posterior gluteus and lateral thigh but not radiating as far as it does on the left side. Patient reports it only comes and goes on the right side but is new and she is somewhat concerned about this. Patient reports a 7 on scale 10 is worse over the past week 5 on average 5 its least and is a 5 today. Patient scribes aching and tingling can be radiating constant in the low back and left and now right lower extremity as well. Patient reports otherwise increase activity as much greater distance walking doing household activities try with greater ease and comfort sleeping better at night patient reports still wakes her from sleep and the pain is beginning to return now in the left leg as well but only mildly. Patient reports she is very pleased with her progress thus far no new motor or sensory deficits no bowel or bladder incontinence. Physical Exam: VS: Blood pressure is 149/93 pulse 76 respirations 16 temperature is 98.2 F height is 5 feet 6 inches weight is 169 pounds. PE: PHYSICAL EXAMINATION: GENERAL: The patient is awake, alert, oriented, appropriate, very pleasant in demeanor HEENT: Shows normocephalic, atraumatic. Extraocular movements are intact and symmetrical. Patient wearing eyeglasses. Oral cavity: Mucous membranes moist and pink. Dentition is intact. NECK: Shows anterior throat supple without palpable lymphadenopathy noted. Swallow reflex symmetrical. CHEST: Shows normal on inspection. Breath sounds are clear bilaterally. HEART: Shows S1, S2 clear. No murmurs auscultated. ABDOMEN: Soft, nontender, nondistended. No palpable organomegaly is noted. BACK: Shows spine grossly in the midline. Normal-appearing cervical lordotic curvature. There is slightly increased thoracic kyphosis, some mild flattening of the lumbar lordotic curvature. Lumbar paraspinous muscles show symmetrical on inspection, on palpation shows some moderate tenderness diffusely throughout the upper, middle and lower distribution of the paraspinous muscles without specific trigger points, without radiation of pain. The patient has good rotational motion of the lumbar spine, both laterally as well as extension and flexion without significant difficulty. EXTREMITIES: Lower extremities show deep tendon reflexes 2 in the patellar and tendo calcaneus tendons. Motor exam is 5 on a scale of 5 with right dorsiflexion, extension, quadriceps and hamstring flexion and 4/5 on the left. Peripheral pulses are 1+ posterior tibial. No peripheral edema is noted bilaterally. Lower extremities are warm and dry. SKIN: Shows warm and dry, good turgor. No edema. No sores, rashes or bruising throughout. Procedure: Procedure: Options were discussed with patient. Patient's old chart was reviewed as her current medication regimen updated current review of systems updated today as well. We will proceed with a lumbar epidural steroid injection today with fluoroscopic guidance. Risks were discussed including but not limited to: Bleeding, infection, possibility of epidural hematoma and subsequent neurologic al compromise, dural puncture, headaches, spinal cord and/or nerve damage, side effects of steroid medication, and poor results regarding pain control. Patient understands and wished to proceed. Patient return to clinic in approximately 2 weeks for follow-up, was counseled as return appointment, activity level, and side effects to be aware of. Medication Injected: Med Injected: Procedure is lumbar epidural steroid injection under local anesthetic using sterile prep and drape at the L4-5 level using C-arm fluoroscopic guidance in both AP and lateral views medications injected is 20 mg dexamethasone +10mL preservative-free normal saline and 2 mL contrast- condition at discharge is stable patient tolerated procedure well had no complications. Condition at Discharge: Condition at Discharge: Condition at discharge stable, patient tolerated procedure well and had no complications. QIAN CHÁVEZ MD August 04, 2021 08:54
--- NOTE | 2021-08-04 08:55 | PDOC4 ---
Procedure Note: ICD 10 Code: ICD 10 Code: M54.16 M51.36 Procedure Note: Patient was consented for lumbar epidural steroid injection with fluoroscopic guidance. Risks were discussed including but not limited to: Bleeding, infection, possibility of epidural hematoma and subsequent neurological compromise, dural puncture, headaches, spinal cord and/or nerve damage, side effects of steroid medication, and poor results regarding pain control. Patient understands and wished to proceed. Procedure is lumbar epidural steroid injection under local anesthetic using sterile prep and drape at the L4-5 level using C-arm fluoroscopic guidance in both AP and lateral views medications injected is 20 mg dexamethasone +10mL preservative-free normal saline and 2 mL contrast- condition at discharge is stable patient tolerated procedure well had no complications. QIAN CHÁVEZ MD August 04, 2021 08:55
== END | disposition home or self-care (01) ==
LOC: PNCL 08:13
PROVIDERS: ATTEND Anesthesiology
DX: M51.16 Intervertebral disc disorders with radiculopathy, lumbar region (principal); M19.90 Unspecified osteoarthritis, unspecified site; E11.9 Type 2 diabetes mellitus without complications; E78.00 Pure hypercholesterolemia, unspecified; I10 Essential (primary) hypertension; F17.210 Nicotine dependence, cigarettes, uncomplicated; Z79.84 Long term (current) use of oral hypoglycemic drugs; Z79.899 Other long term (current) drug therapy; Z98.890 Other specified postprocedural states
CPT/HCPCS: 62323; J1100; Q9965